=== PATIENT | female | born 1960 | race Caucasian/White ===

== ENCOUNTER 2016-05-03 07:23 | Inpatient (IN) | payer MEDICARE ==
[2016-05-03] MEDS ORDERED: HYDROCODONE/ACETAMINOPHEN 5-325 MG TABLET PO ONE (08:23)
[2016-05-03 08:59] LABS: ABSOLUTE EOSINOPHILS # (AUTO) 0.1 10^3/uL (0.0-0.6); ABSOLUTE MONOCYTES (AUTO) 0.4 10^3/uL (0.1-1.4); ABSOLUTE NEUT (AUTO) 3.2 10^3/uL (1.7-8.2); BASOPHILS % (AUTO) 0.5 % (0-2); EOSINOPHILS % (AUTO) 1.5 % (0-6); HEMOGLOBIN 12.9 g/dL (12.0-15.5); HGB HCT DIFFERENCE -0.3; LYMPHOCYTES % (AUTO) 34.5 % (13-45); MEAN CORPUSCULAR HEMOGLOBIN 24.9 pg (27.0-33.4); MEAN CORPUSCULAR HGB CONC 33.2 g/dL (32.0-36.0); MEAN CORPUSCULAR VOLUME 75 fl (80-97); MONOCYTES % (AUTO) 7.6 % (3-13); RED BLOOD COUNT 5.18 10^6/uL (3.72-5.28); RED CELL DISTRIBUTION WIDTH 15.9 % (11.5-14.0); SEGMENTED NEUTROPHILS % (AUTO) 55.9 % (42-78); WHITE BLOOD COUNT 5.7 10^3/uL (4.0-10.5)
[2016-05-03 09:06] LABS: APPEARANCE,URINE CLEAR; BILIRUBIN,URINE NEGATIVE (NEGATIVE); GLUCOSE, URINE >=500 mg/dL (NEGATIVE); KETONES,URINE TRACE mg/dL (NEGATIVE); LEUKOCYTE ESTERASE,URINE NEGATIVE (NEGATIVE); NITRITE,URINE NEGATIVE (NEGATIVE); PROTEIN,URINE NEGATIVE (NEGATIVE); URINE SPECIFIC GRAVITY 1.025; UROBILINOGEN,URINE NEGATIVE mg/dL (<2.0)
[2016-05-03 09:11] LABS: HYALINE CASTS, URINE RARE /LPF
[2016-05-03] MEDS ORDERED: NORMAL SALINE 1000 ML 1,000 ML IV ONE (09:14)
[2016-05-03 09:22] LABS: ALANINE AMINOTRANSFERASE 59 U/L (9-52); ALKALINE PHOSPHATASE 90 U/L (38-126); ANION GAP 18 (5-19); ASPARTATE AMINO TRANSFERASE 42 U/L (14-36); BILIRUBIN,TOTAL 0.4 mg/dL (0.2-1.3); BLOOD UREA NITROGEN 15 mg/dL (7-20); CALCIUM 9.4 mg/dL (8.4-10.2); CARBON DIOXIDE 20 mmol/L (22-30); CHLORIDE 101 mmol/L (98-107); CREATININE RESULT 0.84 mg/dL (0.52-1.25); LIPASE 179.6 U/L (23-300); POTASSIUM 4.5 mmol/L (3.6-5.0); SODIUM 139.3 mmol/L (137-145); TOTAL PROTEIN 6.9 g/dL (6.3-8.2)
[2016-05-03 09:32] LABS: GLUCOSE 412 mg/dL (75-110)
[2016-05-03] MEDS ORDERED: MORPHINE SULFATE 10 MG/ML INJ IV ONE (10:37)
[2016-05-03] MEDS ORDERED: ONDANSETRON HCL INJ/PF 4 MG/2 ML SDV IV ONE (10:37)
[2016-05-03 11:59] LABS: PROTHROMBIN TIME 12.2 SEC (11.4-15.4)
[2016-05-03 12:00] LABS: PARTIAL THROMBOPLASTIN TIME 26.2 SEC (23.5-35.8)
--- NOTE | 2016-05-03 12:03 | ER Document Report ---
ED General - General Chief Complaint: Back Pain Stated Complaint: BACK PAIN Information source: Patient Notes: 55-year-old female presents to the emergency department complaining of mid back pain. Patient reports gradual onset and progressive bilateral R>L mid back pain. States pain radiates to bilateral flank area and is worse when laying down. States pain does not worsen with movement of back/trunk or ambulation and denies midline/vertebral tenderness. Denies recent injury, trauma or fall, fever, extremity weakness/numbness/tingling, saddle numbness, nausea or vomiting , chest pain, shortness of breath. TRAVEL OUTSIDE OF THE [place] IN LAST 30 DAYS: No - HPI Onset: Last week Onset/Duration: Gradual, Persistent Quality of pain: Achy, Sharp, Throbbing Severity: Moderate Pain Level: 4 Exacerbated by: Supine, Coughing Similar symptoms previously: No Recently seen / treated by doctor: No - Related Data Allergies/Adverse Reactions: clarithromycin [From Biaxin] Allergy (Verified 05/03/16 07:55) haloperidol [From Haldol] Allergy (Verified 05/03/16 07:55) Sulfa (Sulfonamide Antibiotics) Allergy (Verified 05/03/16 07:55) Home Medications: Current Home Medications Glipizide [Glocotrol 10 Mg Tablet] 10 mg PO DAILY 05/03/16 [History] Multivitamin [Tab-A-Bro] 1 each PO DAILY 05/03/16 [History] Past Medical History - General Information source: Patient Last Menstrual Period: NA - Social History Smoking Status: Current Every Day Smoker Cigarette use (# per day): Yes - 10/day Frequency of alcohol use: None Drug Abuse: None Lives with: Family Family History: CAD - Past Medical History Cardiac Medical History: Reports: Hx Hypercholesterolemia, Hx Hypertension Endocrine Medical History: Reports: Hx Diabetes Mellitus Type 2 GI Medical History: Reports: Hx Gastroesophageal Reflux Disease Psychiatric Medical History: Reports: Hx Bipolar Disorder, Hx Depression, Hx Schizoaffective Disorder Past Surgical History: Reports: Hx Appendectomy, Hx Section, Hx Tonsillectomy - Immunizations Hx Diphtheria, Pertussis, Tetanus Vaccination: Yes Review of Systems - Review of Systems Constitutional: No symptoms reported EENT: No symptoms reported Cardiovascular: No symptoms reported Respiratory: No symptoms reported Gastrointestinal: See HPI Genitourinary: No symptoms reported Female Genitourinary: No symptoms reported Musculoskeletal: See HPI Skin: No symptoms reported Hematologic/Lymphatic: No symptoms reported Neurological/Psychological: No symptoms reported -: Yes All other systems reviewed and negative Physical Exam - Vital signs Vitals: Temp Pulse Resp BP Pulse Ox 97.8 F 103 H 16 149/74 H 96 05/03/16 07:29 05/03/16 07:29 05/03/16 07:29 05/03/16 07:29 05/03/16 07:29 Interpretation: Normal - General General appearance: Appears well, Alert In distress: None - HEENT Head: Normocephalic, Atraumatic Eyes: Normal Pupils: PERRL - Respiratory Respiratory status: No respiratory distress Chest status: Nontender Breath sounds: Normal - CTAB Chest palpation: Normal - Cardiovascular Rhythm: Regular Heart sounds: Normal auscultation Murmur: No Pulses: Normal: Radial, Posterior tibial, Dorsalis pedis Normal capillary refill: Yes - Abdominal Inspection: Normal Distension: No distension Bowel sounds: Normal Tenderness: Nontender. No: Tender, McBurney's point, Bourgeois's sign, Guarding, Rebound, Other Organomegaly: No organomegaly - Back Back: Nontender - No tenderness to palpation to the midline vertebral area or paraspinal musculature., CVA tenderness - bilateral R>L with percussion. No: Deformity/step-off, Vertebra tenderness, Scars, Scoliosis, Wounds, Other - Extremities General upper extremity: Normal inspection, Nontender, Normal color, Normal ROM , Normal temperature General lower extremity: Normal inspection, Nontender, Normal color, Normal ROM , Normal temperature, Normal weight bearing. No: Shashi's sign - Neurological Neuro grossly intact: Yes Cognition: Normal Orientation: AAOx4 [place] Coma Scale Eye Opening: Spontaneous [place] Coma Scale Verbal: Oriented [place] Coma Scale Motor: Obeys Commands [place] Coma Scale Total: 15 Speech: Normal Motor strength normal: LUE, RUE, LLE, RLE Sensory: Normal - Psychological Associated symptoms: Normal affect, Normal mood - Skin Skin Temperature: Warm Skin Moisture: Dry Skin Color: Normal Course - Re-evaluation Re-evalutation: 05/03/16 09:05 Patient hemodynamically stable, in no distress. Area of concern on CT scan nearly liver per radiologist who recommends obtaining a CT of abdomen with IV contrast to further evaluate for possible thrombus. 05/03/16 11:45 Patient remained hemodynamically stable, in no distress, afebrile. Left portal vein thrombosis on CT scan. Patient presentation and findings were discussed with hospitalist Dr. Mahoney who agrees to evaluate patient in the emergency department, assumed care, and admit to inpatient unit. Findings and plan discussed with patient and who verbalized understanding and agree with plan. - Vital Signs Vital signs: Temp Pulse Resp BP Pulse Ox 98.3 F 88 16 135/77 H 97 05/03/16 09:41 05/03/16 09:41 05/03/16 09:41 05/03/16 09:41 05/03/16 09:41 - Laboratory Result Diagrams: 05/03/16 08:35 05/03/16 08:35 Laboratory results interpreted by me: 05/03/16 05/03/16 05/03/16 08:25 08:35 08:35 MCV 75 L MCH 24.9 L RDW 15.9 H Carbon Dioxide 20 L Glucose 412 H* AST 42 H ALT 59 H Urine Glucose (UA) >=500 H Urine Ketones TRACE H Urine Blood SMALL H - Diagnostic Test Radiology reviewed: Image reviewed, Reports reviewed Discharge - Discharge Clinical Impression: Portal vein thrombosis Condition: Stable Disposition: ADMITTED INPATIENT Admitting Provider: Hospitalist Unit Admitted: Medical Floor
[2016-05-03] MEDS ORDERED: DEXTROSE 40% GEL 15 GM TUBE PO PRN ×2 (12:39)
[2016-05-03] MEDS ORDERED: GLUCAGON,HUMAN RECOMB 1 MG INJ IM PRN (12:39)
[2016-05-03] MEDS ORDERED: DEXTROSE 50%-WATER 25 GM/50 ML DISP.SYRIN IV PRN ×2 (12:39)
--- NOTE | 2016-05-03 12:51 | PDOC H&P ---
History of Present Illness Admission Date/PCP: 05/03/2016 Dr Guillory Patient complains of: severe right flanck pain History of Present Illness: BOBO ANAYA is a 55 year old female Who presented to the ED with severe right flank pain The pain started about a week ago this constant about 3-5/10 Patient has no dysuria nausea vomiting diarrhea Patient has no shortness of breath or chest pain Upon evaluation in the ED patient was diagnosed of portal vein thrombosis, and admitted for further workup and anticoagulation a GI consult was obtained Past Medical History Cardiac Medical History: Reports: Hyperlipidema, Hypertension Endocrine Medical History: Reports: Diabetes Mellitus Type 2 GI Medical History: Reports: Gastroesophageal Reflux Disease Psychiatric Medical History: Reports: Bipolar Disorder, Depression, Schizoaffective Disorder Past Surgical History Past Surgical History: Reports: Appendectomy, Section, Tonsillectomy Social History Smoking Status: Current Every Day Smoker Frequency of Alcohol Use: Rare Hx Recreational Drug Use: No Drugs: None - Advance Directive Resuscitation Status: Full Code Surrogate healthcare decision maker:: Karely Family History Family History: CAD Parental Family History Reviewed: Yes - mother of a blood clot at age 75; father has coronary artery disease Children Family History Reviewed: Yes Sibling(s) Family History Reviewed.: Yes Medication/Allergy Home Medications: Hydroxyzine Pamoate [Vistaril 25 mg Capsule] 25 mg PO ASDIR PRN 03/12/16 Insulin Detemir [Levemir Flextouch] 75 unit SQ HSP 03/12/16 Levothyroxine Sodium [Synthroid 0.112 mg Tablet] 112 mcg PO DAILY 03/12/16 Losartan Potassium 100 mg PO DAILY 03/12/16 Metformin HCl [Glucophage] 1,000 mg PO BID 03/12/16 Omeprazole 40 mg PO DAILY 03/12/16 Simvastatin 40 mg PO QHS 03/12/16 Tizanidine HCl 4 mg PO TID 03/12/16 Trazodone HCl 150 mg PO QHS 03/12/16 Venlafaxine HCl [Venlafaxine HCl ER] 225 mg PO DAILY 03/12/16 Ziprasidone HCl [Geodon] 80 mg PO BID 03/12/16 Glipizide [Glocotrol 10 Mg Tablet] 10 mg PO DAILY 05/03/16 Multivitamin [Tab-A-Bro] 1 each PO DAILY 05/03/16 Allergies/Adverse Reactions: clarithromycin [From Biaxin] Allergy (Verified 05/03/16 07:55) haloperidol [From Haldol] Allergy (Verified 05/03/16 07:55) Sulfa (Sulfonamide Antibiotics) Allergy (Verified 05/03/16 07:55) Review of Systems Constitutional: ABSENT: chills, fever(s), headache(s), weight gain, weight loss Eyes: ABSENT: visual disturbances Ears: ABSENT: hearing changes Cardiovascular: ABSENT: chest pain, dyspnea on exertion, edema, orthropnea, palpitations Respiratory: ABSENT: cough, hemoptysis Gastrointestinal: PRESENT: as per HPI, dysphagia - Dysphagia for solids for weeks Right flank pain for the past week, other - Right flank pain. ABSENT: abdominal pain, constipation, diarrhea, hematemesis, hematochezia, nausea, vomiting Genitourinary: ABSENT: dysuria, hematuria Musculoskeletal: ABSENT: joint swelling Integumentary: ABSENT: rash, wounds Neurological: ABSENT: abnormal gait, abnormal speech, confusion, dizziness, focal weakness, syncope Psychiatric: ABSENT: anxiety, depression, homidical ideation, suicidal ideation Endocrine: ABSENT: cold intolerance, heat intolerance, polydipsia, polyuria Hematologic/Lymphatic: ABSENT: easy bleeding, easy bruising Physical Exam Vital Signs: Temp Pulse Resp BP Pulse Ox 98.3 F 88 16 135/77 H 97 05/03/16 09:41 05/03/16 09:41 05/03/16 09:41 05/03/16 09:41 05/03/16 09:41 Intake & Output 05/02/16 05/03/16 05/04/16 00:59 00:59 00:59 Weight 102.1 kg General appearance: PRESENT: no acute distress, well-developed, well-nourished Head exam: PRESENT: atraumatic, normocephalic Eye exam: PRESENT: conjunctiva pink, EOMI, PERRLA. ABSENT: scleral icterus Ear exam: PRESENT: normal external ear exam Mouth exam: PRESENT: moist, tongue midline Neck exam: ABSENT: carotid bruit, JVD, lymphadenopathy, thyromegaly Respiratory exam: PRESENT: clear to auscultation [place]. ABSENT: rales, rhonchi, wheezes Cardiovascular exam: PRESENT: RRR. ABSENT: diastolic murmur, rubs, systolic murmur Pulses: PRESENT: normal dorsalis pedis pul Vascular exam: PRESENT: normal capillary refill GI/Abdominal exam: PRESENT: normal bowel sounds, soft, other - Severe right CVA tenderness. ABSENT: distended, guarding, mass, organolmegaly, rebound, tenderness Rectal exam: PRESENT: deferred Extremities exam: PRESENT: full ROM. ABSENT: calf tenderness, clubbing, pedal edema Neurological exam: PRESENT: alert, awake, oriented to person, oriented to place , oriented to time, oriented to situation, CN II-XII grossly intact. ABSENT: motor sensory deficit Psychiatric exam: PRESENT: appropriate affect, normal mood. ABSENT: homicidal ideation, suicidal ideation Skin exam: PRESENT: dry, intact, warm. ABSENT: cyanosis, rash Results Laboratory Results: 05/03/16 08:35 05/03/16 08:35 05/03/16 05/03/16 05/03/16 08:25 08:35 08:35 WBC 5.7 RBC 5.18 Hgb 12.9 Hct 39.0 MCV 75 L MCH 24.9 L MCHC 33.2 RDW 15.9 H Plt Count 223 Seg Neutrophils % 55.9 Lymphocytes % 34.5 Monocytes % 7.6 Eosinophils % 1.5 Basophils % 0.5 Absolute Neutrophils 3.2 Absolute Lymphocytes 2.0 Absolute Monocytes 0.4 Absolute Eosinophils 0.1 Absolute Basophils 0.0 Sodium 139.3 Potassium 4.5 Chloride 101 Carbon Dioxide 20 L Anion Gap 18 BUN 15 Creatinine 0.84 Est GFR ( Amer) > 60 Est GFR (Non-Af Amer) > 60 Glucose 412 H* Calcium 9.4 Total Bilirubin 0.4 AST 42 H ALT 59 H Alkaline Phosphatase 90 Total Protein 6.9 Albumin 4.0 Lipase 179.6 Urine Color YELLOW Urine Appearance CLEAR Urine pH 5.0 Ur Specific [place] 1.025 Urine Protein NEGATIVE Urine Glucose (UA) >=500 H Urine Ketones TRACE H Urine Blood SMALL H Urine Nitrite NEGATIVE Ur Leukocyte Esterase NEGATIVE Ur Squamous Epith Cells FEW Impressions: Limited or Localized CT 05/03/16 08:24 IMPRESSION: Diffusely abnormal liver as above. 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 Assessment & Plan - Diagnosis (1) Fatty liver Is this a current diagnosis for this admission?: YesPlan: Slightly abnormal LFTs (2) Uncontrolled diabetes mellitus Qualifiers: Diabetes mellitus type: type 2 Diabetes mellitus complication status: without complication Diabetes mellitus assisted insulin use: without district traffic chief use Qualified Code(s): E11.65 - Type 2 diabetes mellitus with hyperglycemia Is this a current diagnosis for this admission?: YesPlan: We'll hold insulin at this point as patient is kept nothing by mouth We will obtain in a.m. hemoglobin A1c and lipid profile (3) Portal vein thrombosis Is this a current diagnosis for this admission?: YesPlan: Dr. Conklin was consulted We will perform endoscopy this evening If patient does not have esophageal varices we will initiate anticoagulation with Lovenox and Coumadin (4) Depression Qualifiers: Depression Type: unspecified Qualified Code(s): F32.9 - Major depressive disorder, single episode, unspecified Is this a current diagnosis for this admission?: YesPlan: Continue prior medications (5) Tobacco abuse Is this a current diagnosis for this admission?: YesPlan: Nicotine patch will be applied (6) Dysphagia Is this a current diagnosis for this admission?: YesPlan: Dysphagia for solids Endoscopy will be performed this evening - Time Time Spent: 50 to 70 Minutes - Patient was admitted as an inpatient
[2016-05-03] MEDS: INSULIN LISPRO 100 UNIT/ML 3 ML VIAL SUBCUT PRN ×2 (14:47→21:31)
[2016-05-03] MEDS ORDERED: NALOXONE HCL INJ/PF 0.4 MG/1 ML SDV ONE (15:44)
[2016-05-03] MEDS ORDERED: PROMETHAZINE HCL INJ 25 MG/1 ML VIAL ONE (15:44)
[2016-05-03] MEDS ORDERED: MIDAZOLAM 2 MG/2 ML INJ ONE ×2 (15:44)
[2016-05-03] MEDS ORDERED: FLUMAZENIL INJ 0.5 MG/5 ML VIAL IV ONE (15:45)
[2016-05-03] MEDS ORDERED: EPINEPHRINE INJ 1 MG/10 ML DISP.SYRIN ONE (15:45)
[2016-05-03] MEDS ORDERED: FENTANYL CITRATE INJ/PF 100 MCG/2 ML AMPUL ONE (15:45)
[2016-05-03] MEDS ORDERED: GLUCAGON,HUMAN RECOMB 1 MG INJ ONE (15:45)
--- NOTE | 2016-05-03 16:49 | PDOC CONSULTATION ---
Consultation Consult Date: 05/03/16 History of Present Illness Admission Date/PCP: 05/03/16 13:15 History of Present Illness: This is a 55-year-old patient who was admitted today with right-sided abdominal pain and left portal vein thrombosis on CAT scan. The pain has been constant without nausea or vomiting. There is no diarrhea. Her CAT scan showed thrombosis of the left portal vein with cavernous formation. She is about to be started on anticoagulation. She also complains of dysphagia that has been going on for many years but more frequent in the last one year. Dysphagia is for solid foods and pills. She denies heartburn and has been taking omeprazole daily. Her bowels move regularly. She has not had an EGD or colonoscopy in over 20 years. Past Medical History Cardiac Medical History: Reports: Hyperlipidema, Hypertension Endocrine Medical History: Reports: Diabetes Mellitus Type 2 GI Medical History: Reports: Gastroesophageal Reflux Disease Psychiatric Medical History: Reports: Bipolar Disorder, Depression, Schizoaffective Disorder Past Surgical History Past Surgical History: Reports: Appendectomy, Section, Tonsillectomy Denies: Hysterectomy Social History Lives with: Family Smoking Status: Current Every Day Smoker Cigarettes Packs Per Day: 0.5 Frequency of Alcohol Use: Occasional Hx Recreational Drug Use: No Drugs: None Hx Prescription Drug Abuse: No - Advance Directive Resuscitation Status: Full Code Family History Family History: CAD Parental Family History Reviewed: No Children Family History Reviewed: NA Sibling(s) Family History Reviewed.: NA Medication/Allergy Home Medications: Hydroxyzine Pamoate [Vistaril 25 mg Capsule] 25 mg PO ASDIR PRN 03/12/16 Insulin Detemir [Levemir Flextouch] 75 unit SQ HSP 03/12/16 Levothyroxine Sodium [Synthroid 0.112 mg Tablet] 112 mcg PO DAILY 03/12/16 Losartan Potassium 100 mg PO DAILY 03/12/16 Metformin HCl [Glucophage] 1,000 mg PO BID 03/12/16 Omeprazole 40 mg PO DAILY 03/12/16 Simvastatin 40 mg PO QHS 03/12/16 Tizanidine HCl 4 mg PO TID 03/12/16 Trazodone HCl 150 mg PO QHS 03/12/16 Venlafaxine HCl [Venlafaxine HCl ER] 225 mg PO DAILY 03/12/16 Ziprasidone HCl [Geodon] 80 mg PO BID 03/12/16 Glipizide [Glocotrol 10 Mg Tablet] 10 mg PO DAILY 05/03/16 Multivitamin [Tab-A-Bro] 1 each PO DAILY 05/03/16 Allergies/Adverse Reactions: clarithromycin [From Biaxin] Allergy (Verified 05/03/16 07:55) haloperidol [From Haldol] Allergy (Verified 05/03/16 07:55) Sulfa (Sulfonamide Antibiotics) Allergy (Verified 05/03/16 07:55) Physical Exam Vital Signs: Temp Pulse Resp BP Pulse Ox 97.6 F 75 12 117/44 L 97 05/03/16 15:37 05/03/16 16:40 05/03/16 16:40 05/03/16 16:40 05/03/16 16:40 Intake & Output 05/02/16 05/03/16 05/04/16 06:59 06:59 06:59 Intake Total 300 Balance 300 Exam: General: Patient is alert and looks well. She is obese HEENT: There is no pallor or jaundice. PERRLA. Oropharynx normal Respiratory: No chest deformity. No respiratory distress. Chest wall palpitation was unremarkable. Breath sounds were normal Cardiovascular: Heart sounds 1 and 2 normal with no murmurs. Abdominal: Not distended. Soft and nontender. Liver and spleen not palpable. No ascites demonstrated. Bowel sounds active. Rectal examination was deferred. Extremities: No edema Neurological: Alert and oriented x4. Grossly nonfocal. Normal speech Skin: No significant rash Psychological: Normal affect Results Impressions: Limited or Localized CT 05/03/16 08:24 IMPRESSION: Diffusely abnormal liver as above. 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 Assessment & Plan - Diagnosis (1) Dysphagia Qualifiers: Dysphagia type: pharyngoesophageal phase Qualified Code(s): R13.14 - Dysphagia, pharyngoesophageal phase Is this a current diagnosis for this admission?: YesPlan: The etiology for her dysphagia is unclear. She will undergo an EGD and if this is unremarkable a manometry may be needed. (2) Portal vein thrombosis Is this a current diagnosis for this admission?: YesPlan: The etiology for her thrombosis is unclear. She will be started on anticoagulants shortly. We will need to rule out neoplasm (3) Colon cancer screening Plan: She will need a colonoscopy as outpatient (4) Fatty liver Is this a current diagnosis for this admission?: Yes
--- NOTE | 2016-05-03 16:50 | Operative Report ---
Operative Report DATE OF SURGERY: 05/03/16 Operative Report: Pre-op diagnosis: Dysphagia Post-op diagnosis: Antral gastritis Surgery: Esophagogastroduodenoscopy with biopsy Medications: Versed 3 mg Fentanyl 100 mcg IV push Tissue removed: Antral biopsy for pathology Procedure: After informed consent obtained from patient, the throat was sprayed with Hurricane and conscious sedation was achieved. The upper endoscope was inserted into the esophagus under direct vision and advanced into the stomach. The duodenum was entered and examined to the second part. Endoscope was then slowly pulled out of the patient as the mucosa was examined into details. Patient tolerated procedure well. Findings Esophagus: Normal Z-line at: 40 cm Antrum: Moderate erythema area biopsy was taken Body: Normal Fundus: Normal Duodenum first part: Normal Duodenum second part: Normal Plan: Await pathology. Continue Prevacid. Schedule esophageal manometry as outpatient OPERATION: .
[2016-05-03] MEDS ORDERED: (PENDING PHARMACY ID) (Ziprasidone Hcl [Geodon] 80 MG) PO SCH (18:00)
[2016-05-03] MEDS: ZIPRASIDONE HCL 40 MG CAPSULE PO SCH (18:41)
[2016-05-03] MEDS: SIMVASTATIN 40 MG TABLET PO SCH (21:29)
[2016-05-03] MEDS: TRAZODONE HCL 50 MG TABLET PO SCH (21:31)
[2016-05-04 04:44] LABS: ABSOLUTE EOSINOPHILS # (AUTO) 0.1 10^3/uL (0.0-0.6); ABSOLUTE LYMPHOCYTES (AUTO) 2.6 10^3/uL (0.5-4.7); ABSOLUTE MONOCYTES (AUTO) 0.5 10^3/uL (0.1-1.4); ABSOLUTE NEUT (AUTO) 3.6 10^3/uL (1.7-8.2); BASOPHILS % (AUTO) 0.6 % (0-2); EOSINOPHILS % (AUTO) 1.8 % (0-6); HEMOGLOBIN 11.4 g/dL (12.0-15.5); HGB HCT DIFFERENCE 0.2; LYMPHOCYTES % (AUTO) 37.5 % (13-45); MEAN CORPUSCULAR HEMOGLOBIN 24.9 pg (27.0-33.4); MEAN CORPUSCULAR HGB CONC 33.7 g/dL (32.0-36.0); MEAN CORPUSCULAR VOLUME 74 fl (80-97); MONOCYTES % (AUTO) 7.6 % (3-13); RED CELL DISTRIBUTION WIDTH 15.9 % (11.5-14.0); SEGMENTED NEUTROPHILS % (AUTO) 52.5 % (42-78); WHITE BLOOD COUNT 6.9 10^3/uL (4.0-10.5)
[2016-05-04 04:51] LABS: PROTHROMBIN TIME 12.6 SEC (11.4-15.4)
[2016-05-04 04:57] LABS: ALANINE AMINOTRANSFERASE 47 U/L (9-52); ALBUMIN 3.3 g/dL (3.5-5.0); ALKALINE PHOSPHATASE 69 U/L (38-126); ANION GAP 10 (5-19); ASPARTATE AMINO TRANSFERASE 27 U/L (14-36); BILIRUBIN,TOTAL 0.4 mg/dL (0.2-1.3); BLOOD UREA NITROGEN 15 mg/dL (7-20); CALCIUM 9.2 mg/dL (8.4-10.2); CARBON DIOXIDE 23 mmol/L (22-30); CHLORIDE 104 mmol/L (98-107); CHOLESTEROL 144.34 mg/dL (0-200); CREATININE RESULT 0.79 mg/dL (0.52-1.25); Direct HDL 36 mg/dL (>40); GLUCOSE 261 mg/dL (75-110); POTASSIUM 4.5 mmol/L (3.6-5.0); SODIUM 137.1 mmol/L (137-145); TOTAL PROTEIN 5.6 g/dL (6.3-8.2); TRIGLYCERIDES 267 mg/dL (<150)
[2016-05-04] MEDS: LANSOPRAZOLE 30 MG TAB.RAP.DR PO SCH (05:06)
[2016-05-04] MEDS: LEVOTHYROXINE SODIUM 0.112 MG TABLET PO SCH (05:07)
[2016-05-04 05:08] LABS: DIRECT LDL 85 mg/dL (<100)
[2016-05-04 05:12] LABS: VLDL CHOLESTEROL 53.4 mg/dL (10-31)
[2016-05-04] MEDS: ENOXAPARIN SODIUM INJ 100 MG/1 ML DISP.SYRIN SUBCUT SCH ×2 (06:21→17:35)
[2016-05-04 07:50] LABS: APPEARANCE,URINE CLEAR; BILIRUBIN,URINE NEGATIVE (NEGATIVE); GLUCOSE, URINE 150 mg/dL (NEGATIVE); KETONES,URINE NEGATIVE (NEGATIVE); LEUKOCYTE ESTERASE,URINE NEGATIVE (NEGATIVE); NITRITE,URINE NEGATIVE (NEGATIVE); PROTEIN,URINE NEGATIVE (NEGATIVE); URINE SPECIFIC GRAVITY 1.015; UROBILINOGEN,URINE NEGATIVE mg/dL (<2.0)
[2016-05-04] MEDS: INSULIN LISPRO 100 UNIT/ML 3 ML VIAL SUBCUT PRN ×4 (07:59→21:39)
[2016-05-04] MEDS: ZIPRASIDONE HCL 40 MG CAPSULE PO SCH ×2 (07:59→16:35)
[2016-05-04] MEDS: VENLAFAXINE HCL 75 MG CAP.SR.24H PO SCH (09:26)
[2016-05-04] MEDS: MULTIVITAMIN TABLET PO SCH (09:26)
[2016-05-04] MEDS ORDERED: (PENDING PHARMACY ID) (Losartan Potassium [Losartan Potassium] 100 MG) PO SCH (10:00)
[2016-05-04] MEDS ORDERED: (PENDING PHARMACY ID) (Venlafaxine Hcl [Venlafaxine Hcl Er] 225 MG) PO SCH (10:00)
[2016-05-04] MEDS ORDERED: INSULIN DETEMIR 100 UNIT/ML 3 ML PEN SUBCUT SCH (10:00)
--- NOTE | 2016-05-04 10:10 | PDOC DISCHARGE SUMMARY ---
General - Admit/Disc Date/PCP Admission Date/Primary Care Provider: 05/03/16 13:15 Discharge Date: 05/04/16 - Discharge Diagnosis (1) Fatty liver Is this a current diagnosis for this admission?: Yes (2) Uncontrolled diabetes mellitus Is this a current diagnosis for this admission?: YesSummary: Patient had discontinued her Levemir as she could not afford it She was given a prescription and we will resume Levemir 74 units subcutaneous daily at bedtime Hemoglobin A1c was 11.4 (3) Portal vein thrombosis Is this a current diagnosis for this admission?: YesSummary: Isolated portal vein thrombosis family history of blood clots. Patient indeed may have hypercoagulability syndrome There is no evidence of chronic liver disease Endoscopy was performed and was normal; no esophageal varices Patient was treated with Lovenox at 100 mg subcutaneous every 12 Hypercoagulability syndrome lab test was sent as well as hepatitis screen Patient will be followed by Dr. Mae Was discharged on Lovenox subcutaneous (4) Depression Is this a current diagnosis for this admission?: Yes (5) Tobacco abuse Is this a current diagnosis for this admission?: Yes (6) Dysphagia Is this a current diagnosis for this admission?: YesSummary: No abnormalities on endoscopy Patient to follow-up with Dr. Conklin for manometry studies if dysphagia persists Prevacid 30 mg daily (7) Hyperlipidemia Is this a current diagnosis for this admission?: YesSummary: Continue Lipitor Initiated omega-3 fatty acid at discharge Encourage low fat diet - Additional Information Resuscitation Status: Full Code Discharge Diet: Cardiac, Diabetic Discharge Activity: Activity As Tolerated Home Medications: Levothyroxine Sodium [Synthroid 0.112 mg Tablet] 112 mcg PO DAILY 03/12/16 Losartan Potassium 100 mg PO DAILY 03/12/16 Metformin HCl [Glucophage] 1,000 mg PO BID 03/12/16 Simvastatin 40 mg PO QHS 03/12/16 Tizanidine HCl 4 mg PO TID 03/12/16 Trazodone HCl 150 mg PO QHS 03/12/16 Venlafaxine HCl [Venlafaxine HCl ER] 225 mg PO DAILY 03/12/16 Ziprasidone HCl [Geodon] 80 mg PO BID 03/12/16 Glipizide [Glucotrol 10 mg Tablet] 10 mg PO DAILY 05/03/16 Multivitamin [Tab-A-Bro] 1 each PO DAILY 05/03/16 Enoxaparin Sodium [Lovenox Inj 100 mg/1 ml Disp.syrin] 100 mg SUBCUT Q12A #14 disp.syrin 05/04/16 Insulin Detemir [Levemir Flextouch] 75 unit SQ QHS #1 pe 05/04/16 Lansoprazole [Prevacid 30 mg Odt Tablet] 30 mg PO Q6AM #30 tab 05/04/16 [place]-3 Acid Ethyl Esters [Lovaza 1 gm Capsule] 1 gm PO BID #60 capsule History of Present Illness Patient complains of: rt flanck pain History of Present Illness: BOBO ANAYA is a 55 year old female Who presented to the ED with severe right flank pain The pain started about a week ago this constant about 3-5/10 Patient has no dysuria nausea vomiting diarrhea Patient has no shortness of breath or chest pain Upon evaluation in the ED patient was diagnosed of portal vein thrombosis, and admitted for further workup and anticoagulation a GI consult was obtained Hospital Course Hospital Course: Patient was admitted overnight; she underwent endoscopy which was entirely normal Lovenox subcutaneous was initiated; 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 Mae in the office Physical Exam Vital Signs: Temp Pulse Resp BP Pulse Ox 97.5 F 77 16 132/59 H 98 05/04/16 08:41 05/04/16 08:41 05/04/16 08:41 05/04/16 08:41 05/04/16 08:41 Intake & Output 05/03/16 05/04/16 05/05/16 00:59 00:59 00:59 Intake Total 300 1005 Output Total 300 Balance 300 705 Weight 95.7 kg 102 kg General appearance: PRESENT: no acute distress, well-developed, well-nourished Head exam: PRESENT: atraumatic, normocephalic Eye exam: PRESENT: conjunctiva pink, EOMI, PERRLA. ABSENT: scleral icterus Ear exam: PRESENT: normal external ear exam Mouth exam: PRESENT: moist, tongue midline Neck exam: ABSENT: carotid bruit, JVD, lymphadenopathy, thyromegaly Respiratory exam: PRESENT: clear to auscultation darwin. ABSENT: rales, rhonchi, wheezes Cardiovascular exam: PRESENT: RRR. ABSENT: diastolic murmur, rubs, systolic murmur Pulses: PRESENT: normal dorsalis pedis pul Vascular exam: PRESENT: normal capillary refill GI/Abdominal exam: PRESENT: normal bowel sounds, soft. ABSENT: distended, guarding, mass, organolmegaly, rebound, tenderness Rectal exam: PRESENT: deferred Extremities exam: PRESENT: full ROM. ABSENT: calf tenderness, clubbing, pedal edema Neurological exam: PRESENT: alert, awake, oriented to person, oriented to place , oriented to time, oriented to situation, CN II-XII grossly intact. ABSENT: motor sensory deficit Psychiatric exam: PRESENT: appropriate affect, normal mood. ABSENT: homicidal ideation, suicidal ideation Skin exam: PRESENT: dry, intact, warm. ABSENT: cyanosis, rash Results Laboratory Results: 05/04/16 04:05 05/04/16 04:05 05/04/16 05/04/16 05/04/16 04:05 04:05 04:05 WBC 6.9 RBC 4.60 Hgb 11.4 L Hct 34.0 L MCV 74 L MCH 24.9 L MCHC 33.7 RDW 15.9 H Plt Count 194 Seg Neutrophils % 52.5 Lymphocytes % 37.5 Monocytes % 7.6 Eosinophils % 1.8 Basophils % 0.6 Absolute Neutrophils 3.6 Absolute Lymphocytes 2.6 Absolute Monocytes 0.5 Absolute Eosinophils 0.1 Absolute Basophils 0.0 Sodium 137.1 Potassium 4.5 Chloride 104 Carbon Dioxide 23 Anion Gap 10 BUN 15 Creatinine 0.79 Est GFR ( Amer) > 60 Est GFR (Non-Af Amer) > 60 Glucose 261 H Calcium 9.2 Total Bilirubin 0.4 AST 27 ALT 47 Alkaline Phosphatase 69 Total Protein 5.6 L Albumin 3.3 L Triglycerides 267 H Cholesterol 144.34 LDL Cholesterol Direct 85 VLDL Cholesterol 53.4 H HDL Cholesterol 36 L TSH 2.47 Urine Color Urine Appearance Urine pH Ur Specific [place] Urine Protein Urine Glucose (UA) Urine Ketones Urine Blood Urine Nitrite Ur Leukocyte Esterase Urine WBC (Auto) Urine RBC (Auto) 05/04/16 07:15 WBC RBC Hgb Hct MCV MCH MCHC RDW Plt Count Seg Neutrophils % Lymphocytes % Monocytes % Eosinophils % Basophils % Absolute Neutrophils Absolute Lymphocytes Absolute Monocytes Absolute Eosinophils Absolute Basophils Sodium Potassium Chloride Carbon Dioxide Anion Gap BUN Creatinine Est GFR ( Amer) Est GFR (Non-Af Amer) Glucose Calcium Total Bilirubin AST ALT Alkaline Phosphatase Total Protein Albumin Triglycerides Cholesterol LDL Cholesterol Direct VLDL Cholesterol HDL Cholesterol TSH Urine Color YELLOW Urine Appearance CLEAR Urine pH 5.0 Ur Specific [place] 1.015 Urine Protein NEGATIVE Urine Glucose (UA) 150 H Urine Ketones NEGATIVE Urine Blood MODERATE H Urine Nitrite NEGATIVE Ur Leukocyte Esterase NEGATIVE Urine WBC (Auto) 1 Urine RBC (Auto) 1 Impressions: Limited or Localized CT 05/03/16 08:24 IMPRESSION: Diffusely abnormal liver as above. 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 Plan Discharge Plan: Discharged home on Lovenox follow-up with hematology Follow-up with GI if dysphagia persists Time Spent: Greater than 30 Minutes
[2016-05-04] MEDS: LOSARTAN POTASSIUM 50 MG TABLET PO SCH (10:51)
[2016-05-04] MEDS: GLIPIZIDE 10 MG TABLET PO SCH (10:52)
[2016-05-04] MEDS: TIZANIDINE HCL 4 MG TABLET PO SCH ×3 (10:52→17:35)
[2016-05-04] MEDS: OMEGA-3 ACID ETHYL ESTERS 1 GM CAPSULE PO SCH ×2 (10:52→17:35)
[2016-05-04] MEDS: TRAZODONE HCL 50 MG TABLET PO SCH (21:39)
[2016-05-04] MEDS: INSULIN DETEMIR 100 UNIT/ML 3 ML PEN SUBCUT SCH (21:39)
[2016-05-04] MEDS: SIMVASTATIN 40 MG TABLET PO SCH (21:39)
[2016-05-04] MEDS ORDERED: WARFARIN SODIUM 5 MG TABLET PO SCH (22:00)
[2016-05-04] MEDS ORDERED: WARFARIN SODIUM 7.5 MG TABLET PO SCH (22:00)
[2016-05-05] MEDS: LANSOPRAZOLE 30 MG TAB.RAP.DR PO SCH (05:51)
[2016-05-05] MEDS: ENOXAPARIN SODIUM INJ 100 MG/1 ML DISP.SYRIN SUBCUT SCH ×2 (05:51→18:09)
[2016-05-05] MEDS: LEVOTHYROXINE SODIUM 0.112 MG TABLET PO SCH (05:51)
[2016-05-05 07:33] LABS: PROTHROMBIN TIME 12.9 SEC (11.4-15.4)
[2016-05-05] MEDS: INSULIN LISPRO 100 UNIT/ML 3 ML VIAL SUBCUT PRN ×4 (08:01→21:32)
[2016-05-05] MEDS: ZIPRASIDONE HCL 40 MG CAPSULE PO SCH ×2 (08:01→16:41)
--- NOTE | 2016-05-05 08:45 | PDOC CONSULTATION ---
Consultation Consult Date: 05/05/16 Attending physician:: PAN HOFFMAN Consult reason:: Newly noted idiopathic portal vein thrombosis History of Present Illness Admission Date/PCP: 05/03/16 13:15 Patient complains of: Portal vein thrombosis History of Present Illness: 55-year-old female with known history of DM 2, hypertension, who came in with right flank pain. It was fairly severe. In the ER, she had CT of the abdomen pelvis done because of this pain, this indicated concern of portal vein thrombosis. There was fatty liver but no CT findings consistent with cirrhosis. Thus far she has had EGD done which did not show any varices. She has had hepatitis panel sent and this is pending. She does not have any significant alcohol history. She is currently on Lovenox. She was started on warfarin. She has had a hypercoagulable workup sent and this is pending. Of note, her mother at age 73 of mesenteric thrombosis and subsequent small bowel infarction, however she did have known history of atrial fibrillation, she was a heavy smoker, she had cardiovascular disease. There are no other family members with thrombosis history, she does have smoking history, but she is a light smoker now, trying to quit. She has never had any thrombosis herself. Past Medical History Cardiac Medical History: Reports: Hyperlipidema, Hypertension Endocrine Medical History: Reports: Diabetes Mellitus Type 2 GI Medical History: Reports: Gastroesophageal Reflux Disease Psychiatric Medical History: Reports: Bipolar Disorder, Depression, Schizoaffective Disorder Past Surgical History Past Surgical History: Reports: Appendectomy, Section, Tonsillectomy Denies: Hysterectomy Social History Lives with: Family Smoking Status: Current Every Day Smoker Cigarettes Packs Per Day: 0.5 Frequency of Alcohol Use: Occasional Hx Recreational Drug Use: No Drugs: None Hx Prescription Drug Abuse: No - Advance Directive Resuscitation Status: Full Code Family History Family History: CAD Parental Family History Reviewed: Yes Children Family History Reviewed: Yes Sibling(s) Family History Reviewed.: Yes Medication/Allergy Home Medications: Levothyroxine Sodium [Synthroid 0.112 mg Tablet] 112 mcg PO DAILY 03/12/16 Losartan Potassium 100 mg PO DAILY 03/12/16 Metformin HCl [Glucophage] 1,000 mg PO BID 03/12/16 Simvastatin 40 mg PO QHS 03/12/16 Tizanidine HCl 4 mg PO TID 11/12/16 Trazodone HCl 150 mg PO QHS 03/12/16 Venlafaxine HCl [Venlafaxine HCl ER] 225 mg PO DAILY 03/12/16 Ziprasidone HCl [Geodon] 80 mg PO BID 03/12/16 Glipizide [Glucotrol 10 mg Tablet] 10 mg PO DAILY 05/03/16 Multivitamin [Tab-A-Bro] 1 each PO DAILY 05/03/16 Enoxaparin Sodium [Lovenox Inj 100 mg/1 ml Disp.syrin] 100 mg SUBCUT Q12A #14 disp.syrin 05/04/16 Insulin Detemir [Levemir Flextouch] 75 unit SQ QHS #1 pe 05/04/16 Lansoprazole [Prevacid 30 mg Odt Tablet] 30 mg PO Q6AM #30 tab.rap.dr 05/04/16 [place]-3 Acid Ethyl Esters [Lovaza 1 gm Capsule] 1 gm PO BID #60 capsule Allergies/Adverse Reactions: clarithromycin [From Biaxin] Allergy (Verified 05/03/16 07:55) haloperidol [From Haldol] Allergy (Verified 05/03/16 07:55) Sulfa (Sulfonamide Antibiotics) Allergy (Verified 05/03/16 07:55) Review of Systems Constitutional: ABSENT: chills, fever(s), headache(s), weight gain, weight loss Eyes: ABSENT: visual disturbances Ears: ABSENT: hearing changes Cardiovascular: ABSENT: chest pain, dyspnea on exertion, edema, orthropnea, palpitations Respiratory: ABSENT: cough, hemoptysis Gastrointestinal: ABSENT: abdominal pain, constipation, diarrhea, hematemesis, hematochezia, nausea, vomiting Genitourinary: ABSENT: dysuria, hematuria Musculoskeletal: ABSENT: joint swelling Integumentary: ABSENT: rash, wounds Neurological: ABSENT: abnormal gait, abnormal speech, confusion, dizziness, focal weakness, syncope Psychiatric: ABSENT: anxiety, depression, homidical ideation, suicidal ideation Endocrine: ABSENT: cold intolerance, heat intolerance, polydipsia, polyuria Hematologic/Lymphatic: ABSENT: easy bleeding, easy bruising Physical Exam Vital Signs: Temp Pulse Resp BP Pulse Ox 98.4 F 68 16 129/68 H 98 05/05/16 00:38 05/05/16 00:38 05/05/16 00:38 05/05/16 00:38 05/05/16 00:38 Intake & Output 05/04/16 05/05/16 05/06/16 06:59 06:59 06:59 Intake Total 1305 2038 Output Total 300 2600 Balance 1005 -562 Weight 102 kg 102 kg General appearance: PRESENT: no acute distress, well-developed, well-nourished Head exam: PRESENT: atraumatic, normocephalic Eye exam: PRESENT: conjunctiva pink, EOMI, PERRLA. ABSENT: scleral icterus Ear exam: PRESENT: normal external ear exam Mouth exam: PRESENT: moist, tongue midline Neck exam: ABSENT: carotid bruit, JVD, lymphadenopathy, thyromegaly Respiratory exam: PRESENT: clear to auscultation [place]. ABSENT: rales, rhonchi, wheezes Cardiovascular exam: PRESENT: RRR. ABSENT: diastolic murmur, rubs, systolic murmur Pulses: PRESENT: normal dorsalis pedis pul Vascular exam: PRESENT: normal capillary refill GI/Abdominal exam: PRESENT: normal bowel sounds, soft. ABSENT: distended, guarding, mass, organolmegaly, rebound, tenderness Rectal exam: PRESENT: deferred Extremities exam: PRESENT: full ROM. ABSENT: calf tenderness, clubbing, pedal edema Neurological exam: PRESENT: alert, awake, oriented to person, oriented to place , oriented to time, oriented to situation, CN II-XII grossly intact. ABSENT: motor sensory deficit Psychiatric exam: PRESENT: appropriate affect, normal mood. ABSENT: homicidal ideation, suicidal ideation Skin exam: PRESENT: dry, intact, warm. ABSENT: cyanosis, rash Results Laboratory Results: 05/04/16 04:05 05/04/16 04:05 Impressions: Limited or Localized CT 05/03/16 08:24 IMPRESSION: Diffusely abnormal liver as above. 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 Status: Image reviewed by me Assessment & Plan - Diagnosis (1) Portal vein thrombosis Is this a current diagnosis for this admission?: YesPlan: Usually portal vein thrombosis is seen in the setting of cirrhosis, or hepatitis. In her case, it appears to be idiopathic. At present we need to continue on Lovenox with transition to warfarin. She unfortunately has Medicare part D, is in the donut hole, and so either Lovenox, Arixtra or even the newer anticoagulants would be too expensive for her to afford. She will need to remain in house until her INR is therapeutic. - Time Time Spent: 50 to 70 Minutes Critical Time spent with patient: 25-34 minutes - Inpatient Certification Based on my medical assessment, after consideration of the patient's comorbidities, presenting symptoms, or acuity I expect that the services needed warrant INPATIENT care.: Yes I certify that my determination is in accordance with my understanding of Medicare's requirements for reasonable and necessary INPATIENT services [42 CFR 412.3e].: Yes Medical Necessity: Failure to Improve With Outpatient Therapy, Risk of Complication if Not Cared For in Hospital
[2016-05-05] MEDS: LOSARTAN POTASSIUM 50 MG TABLET PO SCH (10:57)
[2016-05-05] MEDS: TIZANIDINE HCL 4 MG TABLET PO SCH ×3 (10:57→18:09)
[2016-05-05] MEDS: GLIPIZIDE 10 MG TABLET PO SCH (10:59)
[2016-05-05] MEDS: OMEGA-3 ACID ETHYL ESTERS 1 GM CAPSULE PO SCH ×2 (10:59→18:09)
[2016-05-05] MEDS: MULTIVITAMIN TABLET PO SCH (10:59)
[2016-05-05] MEDS: VENLAFAXINE HCL 75 MG CAP.SR.24H PO SCH (11:03)
--- NOTE | 2016-05-05 16:06 | PDOC PROGRESS REPORT ---
Subjective Progress Note for:: 05/05/16 Subjective:: Patient feels well no complaints flank pain resolved anticoagulated with lovenox coumadin initiated yesterday Physical Exam Vital Signs: Temp Pulse Resp BP Pulse Ox 98.4 F 68 16 129/68 H 98 05/05/16 00:38 05/05/16 00:38 05/05/16 00:38 05/05/16 00:38 05/05/16 00:38 Intake & Output 05/04/16 05/05/16 05/06/16 00:59 00:59 00:59 Intake Total 300 2738 305 Output Total 2900 Balance 300 -162 305 Weight 95.7 kg 102 kg 102 kg General appearance: PRESENT: no acute distress, well-developed, well-nourished Head exam: PRESENT: atraumatic, normocephalic Eye exam: PRESENT: conjunctiva pink, EOMI, PERRLA. ABSENT: scleral icterus Ear exam: PRESENT: normal external ear exam Mouth exam: PRESENT: moist, tongue midline Neck exam: ABSENT: carotid bruit, JVD, lymphadenopathy, thyromegaly Respiratory exam: PRESENT: clear to auscultation [place]. ABSENT: rales, rhonchi, wheezes Cardiovascular exam: PRESENT: RRR. ABSENT: diastolic murmur, rubs, systolic murmur Pulses: PRESENT: normal dorsalis pedis pul Vascular exam: PRESENT: normal capillary refill GI/Abdominal exam: PRESENT: normal bowel sounds, soft. ABSENT: distended, guarding, mass, organolmegaly, rebound, tenderness Rectal exam: PRESENT: deferred Extremities exam: PRESENT: full ROM. ABSENT: calf tenderness, clubbing, pedal edema Neurological exam: PRESENT: alert, awake, oriented to person, oriented to place , oriented to time, oriented to situation, CN II-XII grossly intact. ABSENT: motor sensory deficit Psychiatric exam: PRESENT: appropriate affect, normal mood. ABSENT: homicidal ideation, suicidal ideation Skin exam: PRESENT: dry, intact, warm. ABSENT: cyanosis, rash Results Laboratory Results: 05/04/16 04:05 05/04/16 04:05 Impressions: Limited or Localized CT 05/03/16 08:24 IMPRESSION: Diffusely abnormal liver as above. 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 Assessment & Plan - Diagnosis (1) Fatty liver Is this a current diagnosis for this admission?: Yes (2) Uncontrolled diabetes mellitus Qualifiers: Diabetes mellitus type: type 2 Diabetes mellitus complication status: without complication Diabetes mellitus computer terminal operator insulin use: without computer terminal operator use Qualified Code(s): E11.65 - Type 2 diabetes mellitus with hyperglycemia Is this a current diagnosis for this admission?: Yes (3) Portal vein thrombosis Is this a current diagnosis for this admission?: Yes (4) Depression Qualifiers: Depression Type: unspecified Qualified Code(s): F32.9 - Major depressive disorder, single episode, unspecified Is this a current diagnosis for this admission?: Yes (5) Tobacco abuse Is this a current diagnosis for this admission?: Yes (6) Dysphagia Qualifiers: Dysphagia type: pharyngoesophageal phase Qualified Code(s): R13.14 - Dysphagia, pharyngoesophageal phase Is this a current diagnosis for this admission?: Yes (7) Hyperlipidemia Is this a current diagnosis for this admission?: Yes - Time Time Spent with patient: continue lovenox/ coumadin coumadin teaching Time Spent with patient: 15-24 minutes
[2016-05-05] MEDS: INSULIN DETEMIR 100 UNIT/ML 3 ML PEN SUBCUT SCH (21:31)
[2016-05-05] MEDS: SIMVASTATIN 40 MG TABLET PO SCH (21:32)
[2016-05-05] MEDS: TRAZODONE HCL 50 MG TABLET PO SCH (21:32)
[2016-05-05] MEDS ORDERED: WARFARIN SODIUM 5 MG TABLET PO SCH (22:00)
[2016-05-06 00:36] LABS: DILUTE RUSSELL VIPOR VENOM 34.9 sec (0.0-44.0); THROMBIN TIME 19.3 sec (0.0-20.9)
[2016-05-06] MEDS: LEVOTHYROXINE SODIUM 0.112 MG TABLET PO SCH (06:06)
[2016-05-06] MEDS: LANSOPRAZOLE 30 MG TAB.RAP.DR PO SCH (06:06)
[2016-05-06] MEDS: ENOXAPARIN SODIUM INJ 100 MG/1 ML DISP.SYRIN SUBCUT SCH ×2 (06:07→17:31)
[2016-05-06 06:55] LABS: PROTHROMBIN TIME 13.8 SEC (11.4-15.4)
[2016-05-06 06:58] LABS: HEMATOCRIT 36.5 % (36.0-47.0); HEMOGLOBIN 12.1 g/dL (12.0-15.5); HGB HCT DIFFERENCE -0.2; MEAN CORPUSCULAR HGB CONC 33.1 g/dL (32.0-36.0); MEAN CORPUSCULAR VOLUME 75 fl (80-97); RED BLOOD COUNT 4.84 10^6/uL (3.72-5.28); RED CELL DISTRIBUTION WIDTH 15.7 % (11.5-14.0); WHITE BLOOD COUNT 4.7 10^3/uL (4.0-10.5)
[2016-05-06 07:31] LABS: ANTITHROMBIN III ACTIVITY 89 % (75-135); LUPUS PANEL INTERPRETATION Comment: (.)
[2016-05-06] MEDS: INSULIN LISPRO 100 UNIT/ML 3 ML VIAL SUBCUT PRN ×4 (08:11→21:59)
[2016-05-06] MEDS: ZIPRASIDONE HCL 40 MG CAPSULE PO SCH ×2 (08:11→17:32)
--- NOTE | 2016-05-06 08:27 | PDOC PROGRESS REPORT ---
Subjective Progress Note for:: 05/06/16 Subjective:: no acute events overnight Physical Exam Vital Signs: Temp Pulse Resp BP Pulse Ox 98.0 F 59 L 15 110/64 98 05/06/16 00:05 05/06/16 00:05 05/06/16 00:05 05/06/16 00:05 05/06/16 00:05 Intake & Output 05/05/16 05/06/16 05/07/16 06:59 06:59 06:59 Intake Total 2038 725 Output Total 2600 1500 Balance -562 -775 Weight 102 kg 102.6 kg General appearance: PRESENT: no acute distress, well-developed, well-nourished Head exam: PRESENT: atraumatic, normocephalic Eye exam: PRESENT: conjunctiva pink, EOMI, PERRLA. ABSENT: scleral icterus Ear exam: PRESENT: normal external ear exam Mouth exam: PRESENT: moist, tongue midline Neck exam: ABSENT: carotid bruit, JVD, lymphadenopathy, thyromegaly Respiratory exam: PRESENT: clear to auscultation [place]. ABSENT: rales, rhonchi, wheezes Cardiovascular exam: PRESENT: RRR. ABSENT: diastolic murmur, rubs, systolic murmur Pulses: PRESENT: normal dorsalis pedis pul Vascular exam: PRESENT: normal capillary refill GI/Abdominal exam: PRESENT: normal bowel sounds, soft. ABSENT: distended, guarding, mass, organolmegaly, rebound, tenderness Rectal exam: PRESENT: deferred Extremities exam: PRESENT: full ROM. ABSENT: calf tenderness, clubbing, pedal edema Neurological exam: PRESENT: alert, awake, oriented to person, oriented to place , oriented to time, oriented to situation, CN II-XII grossly intact. ABSENT: motor sensory deficit Psychiatric exam: PRESENT: appropriate affect, normal mood. ABSENT: homicidal ideation, suicidal ideation Skin exam: PRESENT: dry, intact, warm. ABSENT: cyanosis, rash Results Laboratory Results: 05/06/16 06:14 05/04/16 04:05 05/06/16 06:14 WBC 4.7 RBC 4.84 Hgb 12.1 Hct 36.5 MCV 75 L MCH 25.0 L MCHC 33.1 RDW 15.7 H Plt Count 212 Impressions: Limited or Localized CT 05/03/16 08:24 IMPRESSION: Diffusely abnormal liver as above. 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 Assessment & Plan - Diagnosis (1) Portal vein thrombosis Is this a current diagnosis for this admission?: YesPlan: INR 1.03 today, con't lovenox until INR 2-3. f.u hypercoag w/.u. - Time Time Spent with patient: Less than 15 minutes Critical Time spent with patient: Less than 15 minutes Medications reviewed and adjusted accordingly: Yes - Inpatient Certification Based on my medical assessment, after consideration of the patient's comorbidities, presenting symptoms, or acuity I expect that the services needed warrant INPATIENT care.: Yes I certify that my determination is in accordance with my understanding of Medicare's requirements for reasonable and necessary INPATIENT services [42 CFR 412.3e].: Yes Medical Necessity: Risk of Complication if Not Cared For in Hospital
[2016-05-06] MEDS: LOSARTAN POTASSIUM 50 MG TABLET PO SCH (10:37)
[2016-05-06] MEDS: OMEGA-3 ACID ETHYL ESTERS 1 GM CAPSULE PO SCH ×2 (10:38→17:32)
[2016-05-06] MEDS: MULTIVITAMIN TABLET PO SCH (10:38)
[2016-05-06] MEDS: TIZANIDINE HCL 4 MG TABLET PO SCH ×3 (10:38→17:32)
[2016-05-06] MEDS: GLIPIZIDE 10 MG TABLET PO SCH (10:38)
[2016-05-06] MEDS: VENLAFAXINE HCL 75 MG CAP.SR.24H PO SCH (10:41)
[2016-05-06 15:34] LABS: APPEARANCE,URINE CLEAR; BILIRUBIN,URINE NEGATIVE (NEGATIVE); GLUCOSE, URINE >=500 mg/dL (NEGATIVE); KETONES,URINE NEGATIVE (NEGATIVE); LEUKOCYTE ESTERASE,URINE NEGATIVE (NEGATIVE); NITRITE,URINE NEGATIVE (NEGATIVE); PROTEIN,URINE NEGATIVE (NEGATIVE); URINE SPECIFIC GRAVITY 1.011; UROBILINOGEN,URINE NEGATIVE mg/dL (<2.0)
--- NOTE | 2016-05-06 17:59 | PDOC PROGRESS REPORT ---
Subjective Progress Note for:: 05/06/16 Subjective:: feels well no complaints blood sugars elevated above 200 through day Hemoglobin A1C over 11 Physical Exam Vital Signs: Temp Pulse Resp BP Pulse Ox 97.2 F 66 16 106/63 96 05/06/16 15:08 05/06/16 15:08 05/06/16 15:08 05/06/16 15:08 05/06/16 15:08 Intake & Output 05/05/16 05/06/16 05/07/16 00:59 00:59 00:59 Intake Total 2738 625 405 Output Total 2900 700 800 Balance -162 -75 -395 Weight 102 kg 102 kg 102.6 kg General appearance: PRESENT: no acute distress, well-developed, well-nourished Head exam: PRESENT: atraumatic, normocephalic Eye exam: PRESENT: conjunctiva pink, EOMI, PERRLA. ABSENT: scleral icterus Ear exam: PRESENT: normal external ear exam Mouth exam: PRESENT: moist, tongue midline Neck exam: ABSENT: carotid bruit, JVD, lymphadenopathy, thyromegaly Respiratory exam: PRESENT: clear to auscultation [place]. ABSENT: rales, rhonchi, wheezes Cardiovascular exam: PRESENT: RRR. ABSENT: diastolic murmur, rubs, systolic murmur Pulses: PRESENT: normal dorsalis pedis pul Vascular exam: PRESENT: normal capillary refill GI/Abdominal exam: PRESENT: normal bowel sounds, soft. ABSENT: distended, guarding, mass, organolmegaly, rebound, tenderness Rectal exam: PRESENT: deferred Extremities exam: PRESENT: full ROM. ABSENT: calf tenderness, clubbing, pedal edema Neurological exam: PRESENT: alert, awake, oriented to person, oriented to place , oriented to time, oriented to situation, CN II-XII grossly intact. ABSENT: motor sensory deficit Psychiatric exam: PRESENT: appropriate affect, normal mood. ABSENT: homicidal ideation, suicidal ideation Skin exam: PRESENT: dry, intact, warm. ABSENT: cyanosis, rash Results Laboratory Results: 05/06/16 06:14 05/04/16 04:05 05/06/16 05/06/16 06:14 15:12 WBC 4.7 RBC 4.84 Hgb 12.1 Hct 36.5 MCV 75 L MCH 25.0 L MCHC 33.1 RDW 15.7 H Plt Count 212 Urine Color YELLOW Urine Appearance CLEAR Urine pH 5.0 Ur Specific [place] 1.011 Urine Protein NEGATIVE Urine Glucose (UA) >=500 H Urine Ketones NEGATIVE Urine Blood SMALL H Urine Nitrite NEGATIVE Ur Leukocyte Esterase NEGATIVE Urine WBC (Auto) 1 Impressions: Limited or Localized CT 05/03/16 08:24 IMPRESSION: Diffusely abnormal liver as above. 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 Assessment & Plan - Diagnosis (1) Fatty liver Is this a current diagnosis for this admission?: Yes (2) Uncontrolled diabetes mellitus Qualifiers: Diabetes mellitus type: type 2 Diabetes mellitus complication status: without complication Diabetes mellitus long term care social worker insulin use: without long term care social worker use Qualified Code(s): E11.65 - Type 2 diabetes mellitus with hyperglycemia Is this a current diagnosis for this admission?: YesPlan: patient wishes to switch insulin to NPH 70/30 as she could not afford levemir will start at 40 units SC bid and reevaluate needs (3) Portal vein thrombosis Is this a current diagnosis for this admission?: YesPlan: continue anticoagulation with coumadin / lovenox Patient will remain in hospital till INR is therapeutic (4) Depression Qualifiers: Depression Type: unspecified Qualified Code(s): F32.9 - Major depressive disorder, single episode, unspecified Is this a current diagnosis for this admission?: Yes (5) Tobacco abuse Is this a current diagnosis for this admission?: Yes (6) Dysphagia Qualifiers: Dysphagia type: pharyngoesophageal phase Qualified Code(s): R13.14 - Dysphagia, pharyngoesophageal phase Is this a current diagnosis for this admission?: Yes (7) Hyperlipidemia Is this a current diagnosis for this admission?: Yes - Time Time Spent with patient: 25-34 minutes
[2016-05-06] MEDS ORDERED: HUM INSULIN NPH/REG INSULIN HM 100 UNIT/1 ML 3 ML SUBCUT SCH (18:00)
[2016-05-06] MEDS ORDERED: HUM INSULIN NPH/REG INSULIN HM 100 UNIT/1 ML 3 ML SUBCUT ONE (19:00)
[2016-05-06] MEDS: TRAZODONE HCL 50 MG TABLET PO SCH (21:56)
[2016-05-06] MEDS: SIMVASTATIN 40 MG TABLET PO SCH (21:56)
[2016-05-06] MEDS: WARFARIN SODIUM 7.5 MG TABLET PO SCH (21:56)
[2016-05-07] MEDS: LANSOPRAZOLE 30 MG TAB.RAP.DR PO SCH (06:39)
[2016-05-07] MEDS: LEVOTHYROXINE SODIUM 0.112 MG TABLET PO SCH (06:39)
[2016-05-07] MEDS: ENOXAPARIN SODIUM INJ 100 MG/1 ML DISP.SYRIN SUBCUT SCH ×2 (06:39→17:48)
[2016-05-07] MEDS ORDERED: HUM INSULIN NPH/REG INSULIN HM 100 UNIT/1 ML 3 ML SUBCUT SCH (08:00)
[2016-05-07] MEDS: ZIPRASIDONE HCL 40 MG CAPSULE PO SCH ×2 (08:04→17:48)
[2016-05-07] MEDS: TIZANIDINE HCL 4 MG TABLET PO SCH ×3 (10:14→17:48)
[2016-05-07] MEDS: MULTIVITAMIN TABLET PO SCH (10:14)
[2016-05-07] MEDS: VENLAFAXINE HCL 75 MG CAP.SR.24H PO SCH (10:14)
[2016-05-07] MEDS: LOSARTAN POTASSIUM 50 MG TABLET PO SCH (10:15)
[2016-05-07] MEDS: OMEGA-3 ACID ETHYL ESTERS 1 GM CAPSULE PO SCH ×2 (10:15→17:48)
[2016-05-07] MEDS: GLIPIZIDE 10 MG TABLET PO SCH (10:15)
--- NOTE | 2016-05-07 11:24 | PDOC PROGRESS REPORT ---
Subjective Progress Note for:: 05/07/16 Subjective:: No acute events overnight, no INR yet drawn today Physical Exam Vital Signs: Temp Pulse Resp BP Pulse Ox 97.8 F 75 14 143/77 H 99 05/07/16 07:41 05/07/16 07:41 05/07/16 07:41 05/07/16 07:41 05/07/16 07:41 Intake & Output 05/06/16 05/07/16 05/08/16 06:59 06:59 06:59 Intake Total 725 1363 Output Total 1500 3000 Balance -775 -1637 Weight 102.6 kg 102.6 kg General appearance: PRESENT: no acute distress, well-developed, well-nourished Head exam: PRESENT: atraumatic, normocephalic Eye exam: PRESENT: conjunctiva pink, EOMI, PERRLA. ABSENT: scleral icterus Ear exam: PRESENT: normal external ear exam Mouth exam: PRESENT: moist, tongue midline Neck exam: ABSENT: carotid bruit, JVD, lymphadenopathy, thyromegaly Respiratory exam: PRESENT: clear to auscultation [place]. ABSENT: rales, rhonchi, wheezes Cardiovascular exam: PRESENT: RRR. ABSENT: diastolic murmur, rubs, systolic murmur Pulses: PRESENT: normal dorsalis pedis pul Vascular exam: PRESENT: normal capillary refill GI/Abdominal exam: PRESENT: normal bowel sounds, soft. ABSENT: distended, guarding, mass, organolmegaly, rebound, tenderness Rectal exam: PRESENT: deferred Extremities exam: PRESENT: full ROM. ABSENT: calf tenderness, clubbing, pedal edema Neurological exam: PRESENT: alert, awake, oriented to person, oriented to place , oriented to time, oriented to situation, CN II-XII grossly intact. ABSENT: motor sensory deficit Psychiatric exam: PRESENT: appropriate affect, normal mood. ABSENT: homicidal ideation, suicidal ideation Skin exam: PRESENT: dry, intact, warm. ABSENT: cyanosis, rash Results Laboratory Results: 05/06/16 06:14 05/04/16 04:05 05/06/16 05/07/16 15:12 09:01 Urine Color YELLOW Urine Appearance CLEAR Urine pH 5.0 Ur Specific [place] 1.011 Urine Protein NEGATIVE Urine Glucose (UA) >=500 H Urine Ketones NEGATIVE Urine Blood SMALL H Urine Nitrite NEGATIVE Ur Leukocyte Esterase NEGATIVE Urine WBC (Auto) 1 Stool Occult Blood NEGATIVE Impressions: Limited or Localized CT 05/03/16 08:24 IMPRESSION: Diffusely abnormal liver as above. 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 Assessment & Plan - Diagnosis (1) Portal vein thrombosis Is this a current diagnosis for this admission?: YesPlan: INR sent this am, awaiting results, con't lovenox until INR 2-3, con't warfarin 5mg daily. - Time Time Spent with patient: 15-24 minutes Critical Time spent with patient: 15-24 minutes - Inpatient Certification Based on my medical assessment, after consideration of the patient's comorbidities, presenting symptoms, or acuity I expect that the services needed warrant INPATIENT care.: Yes I certify that my determination is in accordance with my understanding of Medicare's requirements for reasonable and necessary INPATIENT services [42 CFR 412.3e].: Yes Medical Necessity: Risk of Complication if Not Cared For in Hospital
[2016-05-07] MEDS: INSULIN LISPRO 100 UNIT/ML 3 ML VIAL SUBCUT PRN ×2 (12:05→17:47)
--- NOTE | 2016-05-07 14:41 | PDOC PROGRESS REPORT ---
Subjective Progress Note for:: 05/07/16 Subjective:: feels well no complaints INR not therapeutic yet Physical Exam Vital Signs: Temp Pulse Resp BP Pulse Ox 97.5 F 122 H 16 122/58 L 99 05/07/16 11:19 05/07/16 11:19 05/07/16 11:19 05/07/16 11:19 05/07/16 11:19 Intake & Output 05/06/16 05/07/16 05/08/16 00:59 00:59 00:59 Intake Total 625 1368 400 Output Total 700 2800 1000 Balance -75 -1432 -600 Weight 102 kg 102.6 kg 102.6 kg General appearance: PRESENT: no acute distress, well-developed, well-nourished Head exam: PRESENT: atraumatic, normocephalic Eye exam: PRESENT: conjunctiva pink, EOMI, PERRLA. ABSENT: scleral icterus Ear exam: PRESENT: normal external ear exam Mouth exam: PRESENT: moist, tongue midline Neck exam: ABSENT: carotid bruit, JVD, lymphadenopathy, thyromegaly Respiratory exam: PRESENT: clear to auscultation [place]. ABSENT: rales, rhonchi, wheezes Cardiovascular exam: PRESENT: RRR. ABSENT: diastolic murmur, rubs, systolic murmur Pulses: PRESENT: normal dorsalis pedis pul Vascular exam: PRESENT: normal capillary refill GI/Abdominal exam: PRESENT: normal bowel sounds, soft. ABSENT: distended, guarding, mass, organolmegaly, rebound, tenderness Rectal exam: PRESENT: deferred Extremities exam: PRESENT: full ROM. ABSENT: calf tenderness, clubbing, pedal edema Neurological exam: PRESENT: alert, awake, oriented to person, oriented to place , oriented to time, oriented to situation, CN II-XII grossly intact. ABSENT: motor sensory deficit Psychiatric exam: PRESENT: appropriate affect, normal mood. ABSENT: homicidal ideation, suicidal ideation Skin exam: PRESENT: dry, intact, warm. ABSENT: cyanosis, rash Results Laboratory Results: 05/06/16 06:14 05/04/16 04:05 05/06/16 05/07/16 15:12 09:01 Urine Color YELLOW Urine Appearance CLEAR Urine pH 5.0 Ur Specific [place] 1.011 Urine Protein NEGATIVE Urine Glucose (UA) >=500 H Urine Ketones NEGATIVE Urine Blood SMALL H Urine Nitrite NEGATIVE Ur Leukocyte Esterase NEGATIVE Urine WBC (Auto) 1 Stool Occult Blood NEGATIVE Impressions: Limited or Localized CT 05/03/16 08:24 IMPRESSION: Diffusely abnormal liver as above. 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 Assessment & Plan - Diagnosis (1) Fatty liver Is this a current diagnosis for this admission?: Yes (2) Uncontrolled diabetes mellitus Qualifiers: Diabetes mellitus type: type 2 Diabetes mellitus complication status: without complication Diabetes mellitus intermediate card tender insulin use: without retirement use Qualified Code(s): E11.65 - Type 2 diabetes mellitus with hyperglycemia Is this a current diagnosis for this admission?: YesPlan: adjusting NPH for optimal control (3) Portal vein thrombosis Is this a current diagnosis for this admission?: YesPlan: increased coumadin to 7.5 mg daily (4) Depression Qualifiers: Depression Type: unspecified Qualified Code(s): F32.9 - Major depressive disorder, single episode, unspecified Is this a current diagnosis for this admission?: Yes (5) Tobacco abuse Is this a current diagnosis for this admission?: Yes (6) Dysphagia Qualifiers: Dysphagia type: pharyngoesophageal phase Qualified Code(s): R13.14 - Dysphagia, pharyngoesophageal phase Is this a current diagnosis for this admission?: Yes (7) Hyperlipidemia Is this a current diagnosis for this admission?: Yes - Time Time Spent with patient: 15-24 minutes
[2016-05-07 16:03] LABS: PROTHROMBIN TIME 16.2 SEC (11.4-15.4)
[2016-05-07] MEDS: HUM INSULIN NPH/REG INSULIN HM 100 UNIT/1 ML 3 ML SUBCUT SCH (17:47)
[2016-05-07] MEDS: WARFARIN SODIUM 7.5 MG TABLET PO SCH (22:44)
[2016-05-07] MEDS: TRAZODONE HCL 50 MG TABLET PO SCH (22:44)
[2016-05-07] MEDS: SIMVASTATIN 40 MG TABLET PO SCH (22:44)
[2016-05-08] MEDS: LANSOPRAZOLE 30 MG TAB.RAP.DR PO SCH (06:36)
[2016-05-08] MEDS: ENOXAPARIN SODIUM INJ 100 MG/1 ML DISP.SYRIN SUBCUT SCH ×2 (06:36→17:21)
[2016-05-08] MEDS: LEVOTHYROXINE SODIUM 0.112 MG TABLET PO SCH (06:36)
[2016-05-08 06:39] LABS: PROTHROMBIN TIME 17.4 SEC (11.4-15.4)
[2016-05-08] MEDS ORDERED: WARFARIN SODIUM 7.5 MG TABLET PO SCH (07:30)
[2016-05-08] MEDS: LOSARTAN POTASSIUM 50 MG TABLET PO SCH (09:57)
[2016-05-08] MEDS: ZIPRASIDONE HCL 40 MG CAPSULE PO SCH ×2 (09:57→17:21)
[2016-05-08] MEDS: VENLAFAXINE HCL 75 MG CAP.SR.24H PO SCH (09:57)
[2016-05-08] MEDS: OMEGA-3 ACID ETHYL ESTERS 1 GM CAPSULE PO SCH ×2 (09:57→17:22)
[2016-05-08] MEDS: TIZANIDINE HCL 4 MG TABLET PO SCH ×3 (09:58→17:22)
[2016-05-08] MEDS: MULTIVITAMIN TABLET PO SCH (09:58)
[2016-05-08] MEDS: HUM INSULIN NPH/REG INSULIN HM 100 UNIT/1 ML 3 ML SUBCUT SCH ×2 (09:59→17:21)
[2016-05-08] MEDS: GLIPIZIDE 10 MG TABLET PO SCH (09:59)
[2016-05-08] MEDS: INSULIN LISPRO 100 UNIT/ML 3 ML VIAL SUBCUT PRN ×3 (12:24→21:49)
--- NOTE | 2016-05-08 17:26 | PDOC PROGRESS REPORT ---
Subjective Progress Note for:: 05/08/16 Subjective:: Patient is feeling very well she has no complaints; she has been ambulating The INR is 1.34 Blood sugars are better controlled Physical Exam Vital Signs: Temp Pulse Resp BP Pulse Ox 98.9 F 77 16 131/98 H 99 05/08/16 12:00 05/08/16 12:00 05/08/16 12:00 05/08/16 12:00 05/08/16 11:40 Intake & Output 05/07/16 05/08/16 05/09/16 00:59 00:59 00:59 Intake Total 1368 2350 1352 Output Total 2800 3000 1000 Balance -1432 -650 352 Weight 102.6 kg 102.6 kg 102.7 kg General appearance: PRESENT: no acute distress, well-developed, well-nourished Head exam: PRESENT: atraumatic, normocephalic Eye exam: PRESENT: conjunctiva pink, EOMI, PERRLA. ABSENT: scleral icterus Ear exam: PRESENT: normal external ear exam Mouth exam: PRESENT: moist, tongue midline Neck exam: ABSENT: carotid bruit, JVD, lymphadenopathy, thyromegaly Respiratory exam: PRESENT: clear to auscultation [place]. ABSENT: rales, rhonchi, wheezes Cardiovascular exam: PRESENT: RRR. ABSENT: diastolic murmur, rubs, systolic murmur Pulses: PRESENT: normal dorsalis pedis pul Vascular exam: PRESENT: normal capillary refill GI/Abdominal exam: PRESENT: normal bowel sounds, soft. ABSENT: distended, guarding, mass, organolmegaly, rebound, tenderness Rectal exam: PRESENT: deferred Extremities exam: PRESENT: full ROM. ABSENT: calf tenderness, clubbing, pedal edema Neurological exam: PRESENT: alert, awake, oriented to person, oriented to place , oriented to time, oriented to situation, CN II-XII grossly intact. ABSENT: motor sensory deficit Psychiatric exam: PRESENT: appropriate affect, normal mood. ABSENT: homicidal ideation, suicidal ideation Skin exam: PRESENT: dry, intact, warm. ABSENT: cyanosis, rash Results Laboratory Results: 05/06/16 06:14 05/04/16 04:05 Impressions: Limited or Localized CT 05/03/16 08:24 IMPRESSION: Diffusely abnormal liver as above. 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 Assessment & Plan - Diagnosis (1) Fatty liver Is this a current diagnosis for this admission?: Yes (2) Uncontrolled diabetes mellitus Qualifiers: Diabetes mellitus type: type 2 Diabetes mellitus complication status: without complication Diabetes mellitus milk tester insulin use: without milk tester use Qualified Code(s): E11.65 - Type 2 diabetes mellitus with hyperglycemia Is this a current diagnosis for this admission?: Yes (3) Portal vein thrombosis Is this a current diagnosis for this admission?: Yes (4) Depression Qualifiers: Depression Type: unspecified Qualified Code(s): F32.9 - Major depressive disorder, single episode, unspecified Is this a current diagnosis for this admission?: Yes (5) Tobacco abuse Is this a current diagnosis for this admission?: Yes (6) Dysphagia Qualifiers: Dysphagia type: pharyngoesophageal phase Qualified Code(s): R13.14 - Dysphagia, pharyngoesophageal phase Is this a current diagnosis for this admission?: Yes (7) Hyperlipidemia Is this a current diagnosis for this admission?: Yes - Time Time Spent with patient: Increase Coumadin to 10 mg by mouth daily ; PT/INR in a.m. Patient may be discharged as soon as the INR is therapeutic between 2 and 3 Time Spent with patient: 15-24 minutes
[2016-05-08] MEDS: WARFARIN SODIUM 5 MG TABLET PO SCH (21:43)
[2016-05-08] MEDS: TRAZODONE HCL 50 MG TABLET PO SCH (21:43)
[2016-05-08] MEDS: SIMVASTATIN 40 MG TABLET PO SCH (21:43)
[2016-05-09] MEDS: ENOXAPARIN SODIUM INJ 100 MG/1 ML DISP.SYRIN SUBCUT SCH ×2 (06:48→17:47)
[2016-05-09] MEDS: LEVOTHYROXINE SODIUM 0.112 MG TABLET PO SCH (06:48)
[2016-05-09] MEDS: LANSOPRAZOLE 30 MG TAB.RAP.DR PO SCH (06:48)
[2016-05-09 07:06] LABS: HEMATOCRIT 35.8 % (36.0-47.0); HEMOGLOBIN 12.1 g/dL (12.0-15.5); HGB HCT DIFFERENCE 0.5; MEAN CORPUSCULAR HEMOGLOBIN 25.1 pg (27.0-33.4); MEAN CORPUSCULAR HGB CONC 33.8 g/dL (32.0-36.0); MEAN CORPUSCULAR VOLUME 74 fl (80-97); RED BLOOD COUNT 4.81 10^6/uL (3.72-5.28); RED CELL DISTRIBUTION WIDTH 16.1 % (11.5-14.0); WHITE BLOOD COUNT 5.3 10^3/uL (4.0-10.5)
[2016-05-09 07:11] LABS: PROTHROMBIN TIME 19.6 SEC (11.4-15.4)
--- NOTE | 2016-05-09 08:19 | PDOC PROGRESS REPORT ---
Subjective Progress Note for:: 05/09/16 Subjective:: No acute events overnight Physical Exam Vital Signs: Temp Pulse Resp BP Pulse Ox 97.6 F 62 17 116/68 100 05/09/16 00:00 05/09/16 00:00 05/09/16 00:00 05/09/16 00:00 05/09/16 00:00 Intake & Output 05/08/16 05/09/16 05/10/16 06:59 06:59 06:59 Intake Total 2790 1172 Output Total 2000 1000 Balance 790 172 Weight 102.7 kg 103 kg General appearance: PRESENT: no acute distress, well-developed, well-nourished Head exam: PRESENT: atraumatic, normocephalic Eye exam: PRESENT: conjunctiva pink, EOMI, PERRLA. ABSENT: scleral icterus Ear exam: PRESENT: normal external ear exam Mouth exam: PRESENT: moist, tongue midline Neck exam: ABSENT: carotid bruit, JVD, lymphadenopathy, thyromegaly Respiratory exam: PRESENT: clear to auscultation [place]. ABSENT: rales, rhonchi, wheezes Cardiovascular exam: PRESENT: RRR. ABSENT: diastolic murmur, rubs, systolic murmur Pulses: PRESENT: normal dorsalis pedis pul Vascular exam: PRESENT: normal capillary refill GI/Abdominal exam: PRESENT: normal bowel sounds, soft. ABSENT: distended, guarding, mass, organolmegaly, rebound, tenderness Rectal exam: PRESENT: deferred Extremities exam: PRESENT: full ROM. ABSENT: calf tenderness, clubbing, pedal edema Neurological exam: PRESENT: alert, awake, oriented to person, oriented to place , oriented to time, oriented to situation, CN II-XII grossly intact. ABSENT: motor sensory deficit Psychiatric exam: PRESENT: appropriate affect, normal mood. ABSENT: homicidal ideation, suicidal ideation Skin exam: PRESENT: dry, intact, warm. ABSENT: cyanosis, rash Results Laboratory Results: 05/09/16 06:45 05/04/16 04:05 05/09/16 06:45 WBC 5.3 RBC 4.81 Hgb 12.1 Hct 35.8 L MCV 74 L MCH 25.1 L MCHC 33.8 RDW 16.1 H Plt Count 190 Impressions: Limited or Localized CT 05/03/16 08:24 IMPRESSION: Diffusely abnormal liver as above. 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 Assessment & Plan - Diagnosis (1) Portal vein thrombosis Is this a current diagnosis for this admission?: YesPlan: INR is up to 1.59, Coumadin was increased, continue with daily INR, goal INR of 2-3 then discharge can happen. - Time Time Spent with patient: 15-24 minutes Critical Time spent with patient: 15-24 minutes - Inpatient Certification Based on my medical assessment, after consideration of the patient's comorbidities, presenting symptoms, or acuity I expect that the services needed warrant INPATIENT care.: Yes I certify that my determination is in accordance with my understanding of Medicare's requirements for reasonable and necessary INPATIENT services [42 CFR 412.3e].: Yes Medical Necessity: Risk of Complication if Not Cared For in Hospital
[2016-05-09] MEDS: HUM INSULIN NPH/REG INSULIN HM 100 UNIT/1 ML 3 ML SUBCUT SCH ×2 (09:59→16:31)
[2016-05-09] MEDS: INSULIN LISPRO 100 UNIT/ML 3 ML VIAL SUBCUT PRN ×3 (10:00→21:17)
[2016-05-09] MEDS: VENLAFAXINE HCL 75 MG CAP.SR.24H PO SCH (10:00)
[2016-05-09] MEDS: TIZANIDINE HCL 4 MG TABLET PO SCH ×3 (10:00→17:47)
[2016-05-09] MEDS: ZIPRASIDONE HCL 40 MG CAPSULE PO SCH ×2 (10:00→16:31)
[2016-05-09] MEDS: METFORMIN HCL 500 MG TABLET PO SCH ×2 (10:01→16:31)
[2016-05-09] MEDS: OMEGA-3 ACID ETHYL ESTERS 1 GM CAPSULE PO SCH ×2 (10:01→17:47)
[2016-05-09] MEDS: GLIPIZIDE 10 MG TABLET PO SCH (10:01)
[2016-05-09] MEDS: LOSARTAN POTASSIUM 50 MG TABLET PO SCH (10:01)
[2016-05-09] MEDS: MULTIVITAMIN TABLET PO SCH (10:02)
[2016-05-09] MEDS ORDERED: HUM INSULIN NPH/REG INSULIN HM 100 UNIT/1 ML 3 ML SUBCUT SCH (10:37)
[2016-05-09 18:22] LABS: APPEARANCE,URINE CLEAR; BILIRUBIN,URINE NEGATIVE (NEGATIVE); GLUCOSE, URINE NEGATIVE (NEGATIVE); KETONES,URINE NEGATIVE (NEGATIVE); LEUKOCYTE ESTERASE,URINE NEGATIVE (NEGATIVE); NITRITE,URINE NEGATIVE (NEGATIVE); PROTEIN,URINE NEGATIVE (NEGATIVE); URINE SPECIFIC GRAVITY 1.008; UROBILINOGEN,URINE NEGATIVE mg/dL (<2.0)
[2016-05-09] MEDS: SIMVASTATIN 40 MG TABLET PO SCH (21:16)
[2016-05-09] MEDS: WARFARIN SODIUM 5 MG TABLET PO SCH (21:16)
[2016-05-09] MEDS: TRAZODONE HCL 50 MG TABLET PO SCH (21:17)
[2016-05-10 04:59] LABS: PROTHROMBIN TIME 23.3 SEC (11.4-15.4)
[2016-05-10] MEDS: ENOXAPARIN SODIUM INJ 100 MG/1 ML DISP.SYRIN SUBCUT SCH (05:38)
[2016-05-10] MEDS: LANSOPRAZOLE 30 MG TAB.RAP.DR PO SCH (05:39)
[2016-05-10] MEDS: LEVOTHYROXINE SODIUM 0.112 MG TABLET PO SCH (05:39)
[2016-05-10] MEDS ORDERED: HUM INSULIN NPH/REG INSULIN HM 100 UNIT/1 ML 3 ML SUBCUT SCH (08:00)
--- NOTE | 2016-05-10 08:13 | PDOC PROGRESS REPORT ---
Subjective Progress Note for:: 05/10/16 Subjective:: Patient is doing well, INR is 1.98 today Physical Exam Vital Signs: Temp Pulse Resp BP Pulse Ox 98.8 F 63 18 106/58 L 98 05/09/16 19:37 05/09/16 19:37 05/09/16 19:37 05/09/16 19:37 05/09/16 19:37 Intake & Output 05/09/16 05/10/16 05/11/16 06:59 06:59 06:59 Intake Total 1172 1838 Output Total 1000 300 Balance 172 1538 Weight 103 kg 104 kg General appearance: PRESENT: no acute distress, well-developed, well-nourished Head exam: PRESENT: atraumatic, normocephalic Eye exam: PRESENT: conjunctiva pink, EOMI, PERRLA. ABSENT: scleral icterus Ear exam: PRESENT: normal external ear exam Mouth exam: PRESENT: moist, tongue midline Neck exam: ABSENT: carotid bruit, JVD, lymphadenopathy, thyromegaly Respiratory exam: PRESENT: clear to auscultation [place]. ABSENT: rales, rhonchi, wheezes Cardiovascular exam: PRESENT: RRR. ABSENT: diastolic murmur, rubs, systolic murmur Pulses: PRESENT: normal dorsalis pedis pul Vascular exam: PRESENT: normal capillary refill GI/Abdominal exam: PRESENT: normal bowel sounds, soft. ABSENT: distended, guarding, mass, organolmegaly, rebound, tenderness Rectal exam: PRESENT: deferred Extremities exam: PRESENT: full ROM. ABSENT: calf tenderness, clubbing, pedal edema Neurological exam: PRESENT: alert, awake, oriented to person, oriented to place , oriented to time, oriented to situation, CN II-XII grossly intact. ABSENT: motor sensory deficit Psychiatric exam: PRESENT: appropriate affect, normal mood. ABSENT: homicidal ideation, suicidal ideation Skin exam: PRESENT: dry, intact, warm. ABSENT: cyanosis, rash Results Laboratory Results: 05/09/16 06:45 05/04/16 04:05 05/09/16 18:01 Urine Color YELLOW Urine Appearance CLEAR Urine pH 6.0 Ur Specific [place] 1.008 Urine Protein NEGATIVE Urine Glucose (UA) NEGATIVE Urine Ketones NEGATIVE Urine Blood SMALL H Urine Nitrite NEGATIVE Ur Leukocyte Esterase NEGATIVE Urine WBC (Auto) 0 Urine RBC (Auto) 1 Impressions: Limited or Localized CT 05/03/16 08:24 IMPRESSION: Diffusely abnormal liver as above. 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 Assessment & Plan - Diagnosis (1) Portal vein thrombosis Is this a current diagnosis for this admission?: YesPlan: INR is 1.98 today, from a hematologic standpoint that is appropriate. She can be discharged. She should be on warfarin 7.5 mg, I will ask hospitalist team to give her Rx for the 5 and 2.5 mg. She will need INR in our office on Monday , this is being set up by [employer]. She'll have follow-up in our office next week for an official office visit. - Time Time Spent with patient: 25-34 minutes Critical Time spent with patient: 25-34 minutes Anticipated discharge: Home
[2016-05-10 08:18] VITALS: BP 129/67
--- NOTE | 2016-05-10 09:00 | Physician Advisory Note ---
Physician Advisor ProgressNote .: [facility] have [facility] the medical record for this patient. Physician Advisor Statement: Please document the principal dx (the dx primarily responsible for bringing pt into the hospital) as dx #1 in each note. (Alternately, can document "this is the principal dx" on that dx.) R.e. status: Pt came in 05/03 with portal vein thrombosis w/cavernous transformation, had appropriate w/u & tx. On 05/04, EHR said pt not appropriate for Inpt care, just outpt. (Status change wasn't pursued then due to (+)d/c order, per .) Plan was d/c on 05/04, only kept b/c couldn't afford Lovenox or equivalent outpt. Therefore, it's hard to justify change to Inpt at that point if she wasn't approp for Inpt before then. And at that point, she had only been in [facility], too. No new issues developed subsequently that would require Inpatient status. - She was initially appropriate for Outpt Obs; then, as of 05/04, "Outpt in a Bed" if hospital pharmacy unable to provide some Lovenox so as to avoid continued hospital days. Thanks! CK
[2016-05-10] MEDS: MULTIVITAMIN TABLET PO SCH (09:47)
[2016-05-10] MEDS: GLIPIZIDE 10 MG TABLET PO SCH (09:47)
[2016-05-10] MEDS: LOSARTAN POTASSIUM 50 MG TABLET PO SCH (09:47)
[2016-05-10] MEDS: ZIPRASIDONE HCL 40 MG CAPSULE PO SCH (09:48)
[2016-05-10] MEDS: METFORMIN HCL 500 MG TABLET PO SCH (09:48)
[2016-05-10] MEDS: TIZANIDINE HCL 4 MG TABLET PO SCH (09:48)
[2016-05-10] MEDS: VENLAFAXINE HCL 75 MG CAP.SR.24H PO SCH (09:49)
[2016-05-10] MEDS: OMEGA-3 ACID ETHYL ESTERS 1 GM CAPSULE PO SCH (09:59)
--- NOTE | 2016-05-10 14:42 | PDOC DISCHARGE SUMMARY ---
General - Admit/Disc Date/PCP Admission Date/Primary Care Provider: 05/03/16 13:15 Discharge Date: 05/10/16 - Discharge Diagnosis (1) Diabetes 1.5, managed as type 1 Summary: Patient is done much better with the change in her regimen to NPH 70/30 with split dosing of 55 units in the morning and 40 units in the afternoon for about a excellent coverage of her capillary blood glucoses now normally ranging between 150 and 200. Recommend continuing same rather than a regimen she presented with. She should continue to check her capillary blood glucoses every before meals and at bedtime for at least 2 weeks and provide her primary care provider with that data to make further adjustments in her insulin regimen (2) Portal vein thrombosis Is this a current diagnosis for this admission?: YesSummary: Patient was treated with Lovenox as bridge to therapeutic INR utilizing Coumadin 10 mg per day. Her INR today is 1.98. After discussions with hematology as she is felt to be stable for discharge home lower dose at 7.5 mg daily with follow-up INR in 1 week for dose adjustment. Risks of Coumadin use were discussed with the patient all questions asked and answered to the best of my ability. - Additional Information Resuscitation Status: Full Code Discharge Diet: Cardiac, Diabetic Discharge Activity: Activity As Tolerated Home Medications: Levothyroxine Sodium [Synthroid 0.112 mg Tablet] 112 mcg PO DAILY 03/12/16 Losartan Potassium 100 mg PO DAILY 03/12/16 Metformin HCl [Glucophage] 1,000 mg PO BID 03/12/16 Simvastatin 40 mg PO QHS 03/12/16 Tizanidine HCl 4 mg PO TID 03/12/16 Trazodone HCl 150 mg PO QHS 03/12/16 Venlafaxine HCl [Venlafaxine HCl ER] 225 mg PO DAILY 03/12/16 Ziprasidone HCl [Geodon] 80 mg PO BID 03/12/16 Glipizide [Glucotrol 10 mg Tablet] 10 mg PO DAILY 05/03/16 Multivitamin [Tab-A-Bro] 1 each PO DAILY 05/03/16 Insulin Detemir [Levemir Flextouch] 75 unit SQ QHS #1 pe 05/04/16 Hum Insulin NPH/Reg Insulin Hm [Insulin 70-30 (NPH/Reg) 100 unit/mL] 40 unit SUBCUT ACSUPPER #1 vial 05/10/16 Hum Insulin NPH/Reg Insulin Hm [Insulin 70-30 (NPH/Reg) 100 unit/mL] 55 unit SUBCUT ACBRKFST #1 vial 05/10/16 Warfarin Sodium [Coumadin 5 mg Tablet] 5 mg PO QHS #30 tablet 05/10/16 Warfarin Sodium [Coumadin] 2.5 mg PO DAILY #30 tablet 05/10/16 History of Present Illness Patient complains of: Right-sided abdominal pain History of Present Illness: BOBO ANAYA is a 55 year old female Presented with the above complaint. CT scan in the emergency department showed portal vein thrombosis and a questionable gastric mass. GI was consult it and performed upper endoscopy with antral biopsy no masses seen. She was seen by hematology who recommended starting on Lovenox empirically as a bridge to therapeutic Coumadin. She has tolerated that treatment plan without difficulty. She is now therapeutic on her INR stable from a hemodynamic standpoint and able to be discharged home.. Hospital Course Hospital Course: As above Physical Exam Vital Signs: Temp Pulse Resp BP Pulse Ox 97.9 F 68 16 129/67 H 99 05/10/16 11:31 05/10/16 11:31 05/10/16 11:31 05/10/16 11:31 05/10/16 11:31 Intake & Output 05/09/16 05/10/16 05/11/16 06:59 06:59 06:59 Intake Total 1172 1838 Output Total 1000 300 Balance 172 1538 Weight 103 kg 104 kg Results Laboratory Results: 05/09/16 06:45 05/04/16 04:05 05/09/16 18:01 Urine Color YELLOW Urine Appearance CLEAR Urine pH 6.0 Ur Specific [place] 1.008 Urine Protein NEGATIVE Urine Glucose (UA) NEGATIVE Urine Ketones NEGATIVE Urine Blood SMALL H Urine Nitrite NEGATIVE Ur Leukocyte Esterase NEGATIVE Urine WBC (Auto) 0 Urine RBC (Auto) 1 Impressions: Limited or Localized CT 05/03/16 08:24 IMPRESSION: Diffusely abnormal liver as above. 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 Plan Discharge Plan: Follow-up with hematology in one week for repeat INR and Coumadin dose adjustment
[2016-05-10 15:38] LABS: PROTEIN C ACTIVITY 98 % (73-180); PROTEIN C ANTIGEN 70 % (60-150); PROTEIN S FREE 94 % (57-157); PROTEIN S TOTAL 116 % (60-150)
[2016-05-10 16:11] LABS: FACTOR V ACTIVITY 86 % (70-150); PROTEIN S FUNCTIONAL 86 % (63-140)
== END 2016-05-10 11:46 | disposition home or self-care (01) | DRG 443 ==
LOC: ER 07:23 → EH 13:15 → 5 15:08
PROVIDERS: ADMIT Emergency Medicine; ATTEND Emergency Medicine
PROC: 0DB68ZX Excision of Stomach, Via Natural or Artificial Opening Endoscopic, Diagnostic (ICD-10-PCS; principal; 2016-05-03 16:30)
DX: I81 Portal vein thrombosis (principal); K29.50 Unspecified chronic gastritis without bleeding; K76.0 Fatty (change of) liver, not elsewhere classified; I10 Essential (primary) hypertension; E78.5 Hyperlipidemia, unspecified; E11.65 Type 2 diabetes mellitus with hyperglycemia; R13.13 Dysphagia, pharyngeal phase; K21.9 Gastro-esophageal reflux disease without esophagitis; F31.9 Bipolar disorder, unspecified; F17.210 Nicotine dependence, cigarettes, uncomplicated; Z90.49 Acquired absence of other specified parts of digestive tract; Z82.49 Family history of ischemic heart disease and other diseases of the circulatory system; Z88.2 Allergy status to sulfonamides; Z88.1 Allergy status to other antibiotic agents; Z79.4 Long term (current) use of insulin; Z84.89 Family history of other specified conditions
CPT/HCPCS: 36415; 43239; 74160; 76380; 80053; 80061; 80074; 81001; 82272; 82962; 83036; 83520; 83690; 84443; 85025; 85027; 85220; 85300; 85301; 85302; 85305; 85306; 85610; 85730; 86147; 86225; 86235; 88305; 88342; 96361; 96374; 96375; 99284; J0171; J1610; J1650; J1815; J2250; J2270; J2310; J2405; J2550; J3010; J3490; J7030

== ENCOUNTER 2016-05-21 15:26 | Emergency (ER) | payer MEDICARE ==
[2016-05-21] MEDS ORDERED: ONDANSETRON 4 MG TAB.RAPDIS PO ONE (15:47)
--- NOTE | 2016-05-21 15:47 | ER Document Report ---
ED Medical Screen (RME) - General Stated Complaint: ABDOMINAL PAIN Time seen by provider: 15:42 Mode of Arrival: Ambulatory Information source: Patient Notes: 55-year-old female complaining of burning epigastric abdominal pain that started while she was laying down. Tums did not help. She is nauseous. She has had 2 C-sections and appendectomy. [facility] and was told that she had a blood clot (had experienced back pain) in the portal vessel and was started on Coumadin. TRAVEL OUTSIDE OF THE [place] IN LAST 30 DAYS: No - Related Data Allergies/Adverse Reactions: clarithromycin [From Biaxin] Allergy (Verified 05/03/16 07:55) haloperidol [From Haldol] Allergy (Verified 05/03/16 07:55) Sulfa (Sulfonamide Antibiotics) Allergy (Verified 05/03/16 07:55) Past Medical History - Past Medical History Cardiac Medical History: Reports: Hx Hypercholesterolemia, Hx Hypertension Endocrine Medical History: Reports: Hx Diabetes Mellitus Type 2 GI Medical History: Reports: Hx Gastroesophageal Reflux Disease Psychiatric Medical History: Reports: Hx Bipolar Disorder, Hx Depression, Hx Schizoaffective Disorder Past Surgical History: Reports: Hx Appendectomy, Hx Section, Hx Tonsillectomy. Denies: Hx Hysterectomy - Immunizations Hx Diphtheria, Pertussis, Tetanus Vaccination: Yes
[2016-05-21 16:23] LABS: ABSOLUTE EOSINOPHILS # (AUTO) 0.1 10^3/uL (0.0-0.6); ABSOLUTE LYMPHOCYTES (AUTO) 3.6 10^3/uL (0.5-4.7); ABSOLUTE MONOCYTES (AUTO) 0.5 10^3/uL (0.1-1.4); ABSOLUTE NEUT (AUTO) 3.2 10^3/uL (1.7-8.2); BASOPHILS % (AUTO) 0.6 % (0-2); EOSINOPHILS % (AUTO) 1.7 % (0-6); HEMATOCRIT 37.6 % (36.0-47.0); HGB HCT DIFFERENCE -1.6; LYMPHOCYTES % (AUTO) 47.7 % (13-45); MEAN CORPUSCULAR HEMOGLOBIN 24.6 pg (27.0-33.4); MEAN CORPUSCULAR HGB CONC 31.8 g/dL (32.0-36.0); MEAN CORPUSCULAR VOLUME 77 fl (80-97); MONOCYTES % (AUTO) 7.2 % (3-13); RED BLOOD COUNT 4.86 10^6/uL (3.72-5.28); RED CELL DISTRIBUTION WIDTH 15.7 % (11.5-14.0); SEGMENTED NEUTROPHILS % (AUTO) 42.8 % (42-78); WHITE BLOOD COUNT 7.6 10^3/uL (4.0-10.5)
[2016-05-21 16:25] LABS: APPEARANCE,URINE CLEAR; BILIRUBIN,URINE NEGATIVE (NEGATIVE); GLUCOSE, URINE NEGATIVE (NEGATIVE); KETONES,URINE NEGATIVE (NEGATIVE); LEUKOCYTE ESTERASE,URINE NEGATIVE (NEGATIVE); NITRITE,URINE NEGATIVE (NEGATIVE); PROTEIN,URINE NEGATIVE (NEGATIVE); URINE SPECIFIC GRAVITY 1.008; UROBILINOGEN,URINE NEGATIVE mg/dL (<2.0)
[2016-05-21 16:44] LABS: ALANINE AMINOTRANSFERASE 46 U/L (9-52); ALBUMIN 3.9 g/dL (3.5-5.0); ALKALINE PHOSPHATASE 72 U/L (38-126); ANION GAP 12 (5-19); ASPARTATE AMINO TRANSFERASE 38 U/L (14-36); BILIRUBIN,TOTAL 0.4 mg/dL (0.2-1.3); BLOOD UREA NITROGEN 14 mg/dL (7-20); CALCIUM 9.7 mg/dL (8.4-10.2); CARBON DIOXIDE 25 mmol/L (22-30); CHLORIDE 105 mmol/L (98-107); CREATININE RESULT 1.03 mg/dL (0.52-1.25); GLUCOSE 79 mg/dL (75-110); LIPASE 133.8 U/L (23-300); SODIUM 141.9 mmol/L (137-145); TOTAL PROTEIN 6.9 g/dL (6.3-8.2)
[2016-05-21 16:46] LABS: PARTIAL THROMBOPLASTIN TIME 33.6 SEC (23.5-35.8); PROTHROMBIN TIME 27.6 SEC (11.4-15.4)
[2016-05-21] MEDS ORDERED: NORMAL SALINE 1000 ML 1,000 ML IV ONE (19:37)
[2016-05-21] MEDS ORDERED: PROCHLORPERAZINE EDISYLATE INJ 10 MG/2 ML VIAL IV ONE (19:38)
[2016-05-21] MEDS ORDERED: DIPHENHYDRAMINE HCL 50 MG/ML VIAL IV ONE (19:38)
[2016-05-21] MEDS ORDERED: ONDANSETRON HCL INJ/PF 4 MG/2 ML SDV IV ONE (20:46)
[2016-05-21] MEDS ORDERED: FAMOTIDINE 20 MG TABLET PO ONE (21:24)
[2016-05-21] MEDS ORDERED: MAG HYDROX/AL HYDROX/SIMETH SUSP 30 ML UDCUP PO ONE (21:24)
[2016-05-21] MEDS ORDERED: LIDOCAINE 2% VISCOUS SOLN 20 ML UDCUP PO ONE (21:24)
[2016-05-21] MEDS ORDERED: METOCLOPRAMIDE HCL ORAL SOLN 10 MG/10 ML UDCUP PO ONE (21:24)
--- NOTE | 2016-05-21 21:28 | ER Document Report ---
ED General - General Chief Complaint: Abdominal Pain Stated Complaint: ABDOMINAL PAIN Mode of Arrival: Ambulatory Notes: Patient is a 55-year-old female past history of insulin-dependent diabetes, hypertension, bipolar disorder, and history of a portal vein thrombosis currently antiquated with warfarin presents with 6 hours of epigastric and right upper quadrant abdominal pain. Describes the pain as a constant, burning pain. Nothing improves or worsens that pain. It did start after she ate lunch. She has not had similar symptoms in the past and states this does not feel similar to when she was diagnosed with a portal vein thrombosis. She has been taking all medications as directed. She has not spoken to her primary care physician regarding today's concerns. She denies any associated chest pain , shortness of breath, vomiting or diarrhea. TRAVEL OUTSIDE OF THE [place] IN LAST 30 DAYS: No - Related Data Allergies/Adverse Reactions: clarithromycin [From Biaxin] Allergy (Verified 05/21/16 15:43) haloperidol [From Haldol] Allergy (Verified 05/21/16 15:43) Sulfa (Sulfonamide Antibiotics) Allergy (Verified 05/21/16 15:43) Past Medical History - General Information source: Patient - Social History Smoking Status: Never Smoker Chew tobacco use (# tins/day): No Frequency of alcohol use: None Drug Abuse: None Lives with: Spouse/Significant other Family History: CAD Patient has suicidal ideation: No Patient has homicidal ideation: No - Past Medical History Cardiac Medical History: Reports: Hx Hypercholesterolemia, Hx Hypertension Endocrine Medical History: Reports: Hx Diabetes Mellitus Type 2 Renal/ Medical History: Denies: Hx Peritoneal Dialysis GI Medical History: Reports: Hx Gastroesophageal Reflux Disease Psychiatric Medical History: Reports: Hx Bipolar Disorder, Hx Depression, Hx Schizoaffective Disorder Past Surgical History: Reports: Hx Appendectomy, Hx Section, Hx Tonsillectomy. Denies: Hx Hysterectomy - Immunizations Hx Diphtheria, Pertussis, Tetanus Vaccination: Yes Review of Systems - Review of Systems Notes: Constitutional: Negative for fever. HENT: Negative for sore throat. Eyes: Negative for visual changes. Cardiovascular: Negative for chest pain. Respiratory: Negative for shortness of breath. Gastrointestinal: Positive for abdominal pain, negative for vomiting or diarrhea. Genitourinary: Negative for dysuria. Musculoskeletal: Negative for back pain. Skin: Negative for rash. Neurological: Negative for headaches, weakness or numbness. 10 point ROS negative except as marked above and in HPI. Physical Exam - Vital signs Vitals: Temp Pulse Resp BP Pulse Ox 97.9 F 85 16 137/65 H 97 05/21/16 15:44 05/21/16 15:44 05/21/16 15:44 05/21/16 15:44 05/21/16 15:44 Interpretation: Normal Notes: PHYSICAL EXAMINATION: GENERAL: Well-appearing, well-nourished and in no acute distress. HEAD: Atraumatic, normocephalic. EYES: Pupils equal round and reactive to light, extraocular movements intact, sclera anicteric, conjunctiva are normal. ENT: nares patent, oropharynx clear without exudates. Moist mucous membranes. NECK: Normal range of motion, supple without lymphadenopathy LUNGS: Breath sounds clear to auscultation bilaterally and equal. No wheezes rales or rhonchi. HEART: Regular rate and rhythm without murmurs ABDOMEN: Soft, mild epigastric pain, normoactive bowel sounds. No guarding, no rebound. No masses appreciated. EXTREMITIES: Normal range of motion, no pitting or edema. No cyanosis. NEUROLOGICAL: No focal neurological deficits. Moves all extremities spontaneously and on command. PSYCH: Normal mood, normal affect. SKIN: Warm, Dry, normal turgor, no rashes or lesions noted. Course - Re-evaluation Re-evalutation: 05/21/16 21:00 Patient presents with 12 hours of epigastric abdominal pain with associated nausea without vomiting. At time of arrival, patient's vitals are within normal limits and she is in no acute distress. She does have mild focal epigastric tenderness on palpation but abdominal exam is otherwise unremarkable. Given her known history of portal vein thrombosis currently appropriate antibiotics on warfarin, my primary concern would be extension of the known portal vein thrombosis. A CT the abdomen and pelvis with IV contrast was obtained and didn't not demonstrate any worsening of the clot and indeed showed decreased clot burden. No evidence of biliary pathology or inflammation of the pancreas. No evidence of bowel obstruction. I do not suspect mesenteric ischemia based on reassuring CT scan as well as clinical history. Patient is also quite dilated making this diagnosis less likely. Suspect that patient may have some degree of gastric irritation given that her symptoms started shortly after eating a heavy meal at lunch today. Will trial therapies for stomach irritation and reassess. 05/21/16 21:37 Patient is had improvement of her symptoms after seeing a GI cocktail. States that her pain and nausea are resolved at this time. Vitals remained within normal limits. Abdominal exam remained benign. No focal tenderness at this time. At this time will discharge with return precautions and follow-up recommendations. Verbal discharge instructions given a the bedside and opportunity for questions given. Medication warnings reviewed. Patient is in agreement with this plan and has verbalized understanding of return precautions and the need for primary care follow-up in the next 24-72 hours. - Vital Signs Vital signs: Temp Pulse Resp BP Pulse Ox 97.9 F 85 15 137/67 H 96 05/21/16 15:44 05/21/16 15:44 05/21/16 22:02 05/21/16 22:02 05/21/16 22:02 - Laboratory Result Diagrams: 05/21/16 15:50 05/21/16 15:50 Laboratory results interpreted by me: 05/21/16 05/21/16 05/21/16 15:20 15:50 15:50 MCV 77 L MCH 24.6 L MCHC 31.8 L RDW 15.7 H Lymphocytes % 47.7 H PT 27.6 H Est GFR (Non-Af Amer) 56 L AST 38 H Urine Blood 05/21/16 15:50 MCV MCH MCHC RDW Lymphocytes % PT Est GFR (Non-Af Amer) AST Urine Blood MODERATE H - Diagnostic Test Radiology reviewed: Reports reviewed Discharge - Discharge Clinical Impression: Epigastric abdominal pain, Nausea Condition: Good Disposition: HOME, SELF-CARE Additional Instructions: You have been seen in the Emergency Department (ED) for abdominal pain. Your evaluation did not identify a clear cause of your symptoms but was generally reassuring. Your clot in the portal vein has decreased in size. Your also been started on a medication to help reduce the irritation of your stomach called famotidine. Please take as directed. Please follow up with your doctor as soon as possible regarding today's emergent visit and the symptoms that are bothering you. Return to the ED if your abdominal pain worsens or fails to improve, you develop bloody vomiting, bloody diarrhea, you are unable to tolerate fluids due to vomiting, fever greater than 101, or other symptoms that concern you. Prescriptions: Famotidine 40 mg PO BID #60 tablet
[2016-05-21 22:16] VITALS: BP 137/67
== END 2016-05-21 22:16 | disposition home or self-care (01) ==
LOC: ER 15:26
DX: R10.13 Epigastric pain (principal); R11.0 Nausea; E11.9 Type 2 diabetes mellitus without complications; I10 Essential (primary) hypertension; F31.9 Bipolar disorder, unspecified; Z79.4 Long term (current) use of insulin
CPT/HCPCS: 99284; 96374; 96375; 36415; 83690; 85025; 85610; 85730; 80053; 81001; 74177; A9270 ×3; J1200; J3490; J0780; J2405; J7030; S0119

== ENCOUNTER → 2016-07-26 | Outpatient (CLI) | payer MEDICARE | LOC: WI 09:15 | PROVIDERS: ATTEND Family Medicine | DX: Z12.31 Encounter for screening mammogram for malignant neoplasm of breast (principal) | CPT/HCPCS: 77067; G0202 ==

== ENCOUNTER 2016-07-27 19:41 | Emergency (ER) | payer MEDICARE ==
[2016-07-27 20:11] VITALS: BP 160/74
--- NOTE | 2016-07-27 20:33 | ER Document Report ---
ED Medical Screen (RME) - General Stated Complaint: HEADACHE/FACIAL NUMBNESS Notes: 55 yo female c/o right occipital headache all day, pounding. right facial numbness x 30 minutes. + hx/o HTN. compliant with meds. no hx/o headache. + worse headache. + nausea. no relief with Tylenol no facial droop, no extremity weakness TRAVEL OUTSIDE OF THE [place] IN LAST 30 DAYS: No - Related Data Allergies/Adverse Reactions: clarithromycin [From Biaxin] Allergy (Verified 05/21/16 15:43) haloperidol [From Haldol] Allergy (Verified 05/21/16 15:43) Sulfa (Sulfonamide Antibiotics) Allergy (Verified 05/21/16 15:43) Past Medical History - Past Medical History Cardiac Medical History: Reports: Hx Hypercholesterolemia, Hx Hypertension Endocrine Medical History: Reports: Hx Diabetes Mellitus Type 2 Renal/ Medical History: Denies: Hx Peritoneal Dialysis GI Medical History: Reports: Hx Gastroesophageal Reflux Disease Psychiatric Medical History: Reports: Hx Bipolar Disorder, Hx Depression, Hx Schizoaffective Disorder Past Surgical History: Reports: Hx Appendectomy, Hx Section, Hx Tonsillectomy. Denies: Hx Hysterectomy - Immunizations Hx Diphtheria, Pertussis, Tetanus Vaccination: Yes Physical Exam - Vital signs Vitals: Temp Pulse Resp BP Pulse Ox 98.7 F 92 16 160/74 H 97 07/27/16 20:10 07/27/16 20:10 07/27/16 20:10 07/27/16 20:10 07/27/16 20:10 Course - Vital Signs Vital signs: Temp Pulse Resp BP Pulse Ox 98.7 F 92 16 160/74 H 97 07/27/16 20:10 07/27/16 20:10 07/27/16 20:10 07/27/16 20:10 07/27/16 20:10
[2016-07-27] MEDS ORDERED: DIPHENHYDRAMINE HCL 50 MG CAPSULE PO ONE (20:34)
[2016-07-27] MEDS ORDERED: PROMETHAZINE HCL 25 MG TABLET PO ONE (20:35)
[2016-07-27 20:55] LABS: ABSOLUTE EOSINOPHILS # (AUTO) 0.1 10^3/uL (0.0-0.6); ABSOLUTE LYMPHOCYTES (AUTO) 3.4 10^3/uL (0.5-4.7); ABSOLUTE MONOCYTES (AUTO) 0.6 10^3/uL (0.1-1.4); ABSOLUTE NEUT (AUTO) 3.9 10^3/uL (1.7-8.2); BASOPHILS % (AUTO) 0.5 % (0-2); EOSINOPHILS % (AUTO) 1.8 % (0-6); HEMATOCRIT 36.4 % (36.0-47.0); HEMOGLOBIN 12.1 g/dL (12.0-15.5); HGB HCT DIFFERENCE -0.1; LYMPHOCYTES % (AUTO) 41.9 % (13-45); MEAN CORPUSCULAR HEMOGLOBIN 24.3 pg (27.0-33.4); MEAN CORPUSCULAR HGB CONC 33.1 g/dL (32.0-36.0); MEAN CORPUSCULAR VOLUME 74 fl (80-97); MONOCYTES % (AUTO) 7.5 % (3-13); RED BLOOD COUNT 4.96 10^6/uL (3.72-5.28); RED CELL DISTRIBUTION WIDTH 16.5 % (11.5-14.0); SEGMENTED NEUTROPHILS % (AUTO) 48.3 % (42-78)
[2016-07-27 21:00] LABS: APPEARANCE,URINE CLEAR; BILIRUBIN,URINE NEGATIVE (NEGATIVE); GLUCOSE, URINE 150 mg/dL (NEGATIVE); KETONES,URINE NEGATIVE (NEGATIVE); LEUKOCYTE ESTERASE,URINE NEGATIVE (NEGATIVE); NITRITE,URINE NEGATIVE (NEGATIVE); PROTEIN,URINE NEGATIVE (NEGATIVE); URINE SPECIFIC GRAVITY 1.016; UROBILINOGEN,URINE NEGATIVE mg/dL (<2.0)
[2016-07-27 21:09] LABS: ALANINE AMINOTRANSFERASE 46 U/L (9-52); ALBUMIN 4.1 g/dL (3.5-5.0); ALKALINE PHOSPHATASE 73 U/L (38-126); ANION GAP 13 (5-19); ASPARTATE AMINO TRANSFERASE 32 U/L (14-36); BILIRUBIN,DIRECT 0.1 mg/dL (0.0-0.4); BILIRUBIN,TOTAL 0.3 mg/dL (0.2-1.3); BLOOD UREA NITROGEN 15 mg/dL (7-20); CALCIUM 9.6 mg/dL (8.4-10.2); CARBON DIOXIDE 23 mmol/L (22-30); CHLORIDE 107 mmol/L (98-107); CREATININE RESULT 0.97 mg/dL (0.52-1.25); GLUCOSE 145 mg/dL (75-110); POTASSIUM 4.2 mmol/L (3.6-5.0); TOTAL PROTEIN 6.9 g/dL (6.3-8.2)
== END 2016-07-27 22:47 | disposition left against medical advice (07) ==
LOC: ER 19:41
DX: R51 Headache (principal); R20.0 Anesthesia of skin; I10 Essential (primary) hypertension; E11.9 Type 2 diabetes mellitus without complications; Z88.1 Allergy status to other antibiotic agents; Z88.8 Allergy status to other drugs, medicaments and biological substances; Z88.2 Allergy status to sulfonamides; Z53.20 Procedure and treatment not carried out because of patient's decision for unspecified reasons
CPT/HCPCS: 99281; 36415; 85025; 80053; 81001; 70450; A9270 ×2

== ENCOUNTER → 2016-09-19 | Outpatient (CLI) | payer MEDICARE ==
--- NOTE | 2016-09-19 10:48 | RADIOLOGY REPORT (SQ) ---
EXAM DESCRIPTION: CT ABD/PELVIS WITH IV ONLY COMPLETED DATE/TIME: 09/19/2016 8:18 am REASON FOR STUDY: PORTAL VEIN THROMBOSIS/ABDOMINAL PAIN I81 PORTAL VEIN THROMBOSIS R10.9 UNSPECIFI ED ABDOMINAL PAIN R10.2 PELVIC AND PERINEAL PAIN COMPARISON: 05/21/2016 TECHNIQUE: CT scan of the abdomen and pelvis performed using helical scanning technique with dynamic intravenous contrast injection. No oral contrast. Images reviewed with lung, soft tissue, and bone windows. Reconstructed coronal and sagittal MPR images reviewed. Delayed images for evaluation of the urinary system also acquired. All images stored on PACS. All CT scanners at this facility use dose modulation, iterative reconstruction, and/or weight based d osing when appropriate to reduce radiation dose to as low as reasonably achievable (ALARA). [facility]: Dose Right [facility]: CareDose [facility]: Dose Right [facility]: Teradose 4D [facility]: Visual Realm CONTRAST TYPE AND DOSE: 100mL Isovue 370- low osmolar. RENAL FUNCTION: Creatinine 1.1 BUN 17 RADIATION DOSE: 48.95mGy. LIMITATIONS: None. FINDINGS: LOWER CHEST: No significant findings. No nodules or infiltrates. LIVER: There is continued improved perfusion of the left lobe of the liver. There continues to be so me degree of delayed washout in the left lobe. No hepatic masses are seen. SPLEEN: Normal size. No focal lesions. PANCREAS: No masses. No significant calcifications. No adjacent inflammation or peripancreatic fluid collections. Pancreatic duct not dilated. GALLBLADDER: Contracted. No stones are seen. ADRENAL GLANDS: No significant masses or asymmetry. RIGHT KIDNEY AND URETER: No solid masses. No significant calcifications. No hydronephrosis or hyd roureter. LEFT KIDNEY AND URETER: No solid masses. No significant calcifications. No hydronephrosis or hydr oureter. AORTA AND VESSELS: No aneurysm. No dissection. Renal arteries, SMA, celiac without stenosis. RETROPERITONEUM: No retroperitoneal adenopathy, hemorrhage or masses. BOWEL AND PERITONEAL CAVITY: No masses or inflammatory changes. No free fluid or peritoneal masses. APPENDIX: Surgically absent. PELVIS: No mass or free fluid. The urinary bladder is normal. Uterus is normal for age. There is n o adnexal mass or fluid collection. ABDOMINAL WALL: No masses. No hernias. BONES: There are bridging osteophytes in the upper lumbar spine. OTHER: No other significant finding. IMPRESSION: 1. There is continued improved perfusion of the left lobe of the liver. There is mild delayed washout once again. L2. The main and right portal veins are normal. There is no pathology involving the superior mesent sarah vein. TECHNICAL DOCUMENTATION: JOB ID: [id number] Quality ID # [id number]: Final reports with documentation of one or more dose reduction techniques (e.g., Au tomated exposure control, adjustment of the mA and/or kV according to patient size, use of iterative reconstruction technique) 2010 [id number]- All Rights Reserved
== END ==
LOC: RAD 07:38
PROVIDERS: ATTEND Internal Medicine
DX: R10.2 Pelvic and perineal pain (principal); R07.9 Chest pain, unspecified
CPT/HCPCS: 74177

== ENCOUNTER 2017-03-25 09:55 | Emergency (ER) | payer MEDICARE ==
[2017-03-25 10:12] VITALS: BP 152/67
--- NOTE | 2017-03-25 11:03 | ER Document Report ---
ED Neck/Back Problem - General Chief Complaint: Back Pain Stated Complaint: BACK PAIN, COUGH Time Seen by Provider: 03/25/17 10:24 Mode of Arrival: Ambulatory Information source: Patient Notes: 56-year-old female presents to ED for complaint of cough cold congestion and low back pain times a week. She denied any injury. She does have a history of chronic back pain. She also has a history of blood clots in the lungs. She was taken Coumadin but has been taken off of that because the lungs were clear. TRAVEL OUTSIDE OF THE [place] IN LAST 30 DAYS: No - HPI Patient complains to provider of: Upper back - Upper and lower back pain for about a month, Lower back - Findings cough congestion and low back pain for a month Onset: Other - Month Where: Home Onset: Gradual Timing: Still present Quality of pain: Achy Context: Bending Recent injury: No Associated symptoms: Like prior neck/back pain, Radiation to leg, Lower back pain, Upper back pain. denies: Constipation, Fever, Incontinence, Motor loss, Numbness/tingling, Sensory loss, Sweaty, Unable to urinate Exacerbated by: Nothing Relieved by: Nothing Similar symptoms previously: Yes Recently seen / treated by doctor: Yes - Related Data Allergies/Adverse Reactions: clarithromycin [From Biaxin] Allergy (Verified 05/21/16 15:43) haloperidol [From Haldol] Allergy (Verified 05/21/16 15:43) Sulfa (Sulfonamide Antibiotics) Allergy (Verified 05/21/16 15:43) Past Medical History - General Information source: Patient - Social History Smoking Status: Former Smoker Cigarette use (# per day): No Chew tobacco use (# tins/day): No Smoking Education Provided: No Frequency of alcohol use: None Drug Abuse: None Lives with: Family Family History: CAD Patient has suicidal ideation: No Patient has homicidal ideation: No - Past Medical History Cardiac Medical History: Reports: Hx Hypercholesterolemia, Hx Hypertension Pulmonary Medical History: Reports: None EENT Medical History: Reports: None Neurological Medical History: Reports: None Endocrine Medical History: Reports: Hx Diabetes Mellitus Type 2 Renal/ Medical History: Reports: None Malignancy Medical History: Reports: None GI Medical History: Reports: Hx Gastroesophageal Reflux Disease Musculoskeltal Medical History: Reports None, Reports Hx Arthritis, Reports Hx Musculoskeletal Deformity, Reports Hx Musculoskeletal Trauma Skin Medical History: Reports None Psychiatric Medical History: Reports: Hx Bipolar Disorder, Hx Depression, Hx Schizoaffective Disorder Traumatic Medical History: Reports: None Infectious Medical History: Reports: None Past Surgical History: Reports: Hx Appendectomy, Hx Section, Hx Tonsillectomy - Immunizations Hx Diphtheria, Pertussis, Tetanus Vaccination: Yes Review of Systems - Review of Systems Constitutional: No symptoms reported EENT: No symptoms reported Cardiovascular: No symptoms reported Respiratory: No symptoms reported Gastrointestinal: No symptoms reported Genitourinary: No symptoms reported Female Genitourinary: No symptoms reported Musculoskeletal: Back pain, Muscle pain, Muscle stiffness Skin: No symptoms reported Hematologic/Lymphatic: No symptoms reported Neurological/Psychological: No symptoms reported -: Yes All other systems reviewed and negative Physical Exam - Vital signs Vitals: Temp Pulse Resp BP Pulse Ox 98.4 F 81 18 152/67 H 96 03/25/17 10:08 03/25/17 10:08 03/25/17 10:08 03/25/17 10:08 03/25/17 10:08 Interpretation: Normal - General General appearance: Appears well, Alert - HEENT Head: Normocephalic, Atraumatic Eyes: Normal Pupils: PERRL - Respiratory Respiratory status: No respiratory distress Chest status: Nontender Breath sounds: Normal Chest palpation: Normal - Cardiovascular Rhythm: Regular Heart sounds: Normal auscultation Murmur: No - Abdominal Inspection: Normal Distension: No distension Bowel sounds: Normal Tenderness: Nontender Organomegaly: No organomegaly - Back Back: Normal, Tender - Muscle pain and stiffness to the back.. No: Deformity/ step-off, CVA tenderness, Vertebra tenderness, Scars, Scoliosis, Wounds - Extremities General upper extremity: Normal inspection, Nontender, Normal color, Normal ROM , Normal temperature General lower extremity: Normal inspection, Nontender, Normal color, Normal ROM , Normal temperature, Normal weight bearing. No: Shashi's sign - Neurological Neuro grossly intact: Yes Cognition: Normal Orientation: AAOx4 [place] Coma Scale Eye Opening: Spontaneous [place] Coma Scale Verbal: Oriented [place] Coma Scale Motor: Obeys Commands [place] Coma Scale Total: 15 Speech: Normal Motor strength normal: LUE, RUE, LLE, RLE Sensory: Normal - Psychological Associated symptoms: Normal affect, Normal mood - Skin Skin Temperature: Warm Skin Moisture: Dry Skin Color: Normal Course - Re-evaluation Re-evalutation: 03/25/17 13:32 Signs of cauda equina no signs of saddle anesthesia, no loss control of bowel bladder, no loss control of muscles to legs, and no loss of sensation to legs. Will discharge patient home with Aspercreme ibuprofen ice heat and back exercises. - Vital Signs Vital signs: Temp Pulse Resp BP Pulse Ox 98.4 F 81 18 152/67 H 96 03/25/17 10:08 03/25/17 10:08 03/25/17 10:08 03/25/17 10:08 03/25/17 10:08 Discharge - Discharge Clinical Impression: Back pain Qualifiers: Back pain location: thoracic back pain Chronicity: chronic Back pain laterality : bilateral Qualified Code(s): M54.6 - Pain in thoracic spine Low back pain Qualifiers: Chronicity: acute Back pain laterality: bilateral Sciatica presence: without sciatica Qualified Code(s): M54.5 - Low back pain Condition: Stable Disposition: HOME, SELF-CARE Instructions: Range of Motion Exercises ([facility]), Exercise Program for the Shoulder ([facility]), Upper Back Strain ([facility]) Additional Instructions: LOW BACK PAIN: Three out of every four people will have an episode of disabling back pain during their lifetime. Most commonly the pain is due to straining of the muscles and ligaments in the low back. Usual treatment includes: (1) Rest on a firm surface. Avoid lying on your stomach. (2) Ice pack the painful area. After a few days, gentle heat may be used intermittently to relax the area, or ice packs can be continued. (3) Medication may be needed -- muscle relaxers and antiinflammatory medicines are commonly used. (4) As the back improves, exercises are prescribed to strengthen the back and abdominal muscles. Your doctor will advise you on the proper care for your back at each stage in your recovery. You may be better in a few days -- or healing may take several weeks. If new symptoms of a "herniated disc" (radiation of pain, numbness, or tingling down the back of the leg or weakness in the leg) occur, you should be re-examined. Further testing may be necessary. ICE PACKS: Apply ice packs frequently against the painful area. Many different schedules are recommended, such as "20 minutes on, 20 minutes off" or "one hour ice, two hours rest." If you need to work, you may need to go longer between ice treatments. You should plan to have the area ice packed AT LEAST one fourth of the time. The ice should be applied over the wrap, tape, or splint, or over a layer of cloth -- not directly against the skin. Some ice bags have a built-in cloth and can be put directly on the skin. WARM PACKS: After approximately two days, apply gentle heat (such as a heating pad or hot water bottle) for about 20 to 30 minutes about every two hours -- at least four times daily. Warmth and elevation will help you make a more rapid recovery , and will ease the pain considerably. Do not use HOT heat, and never apply heat for longer than 30 minutes. The continuous heat can invisibly damage skin and muscles -- even when no burn is seen on the surface. Damaged muscles can make you MORE sore. Stretching Exercises for the Back The physician has recommended that you begin stretching exercises for your back. These are often used even while the back is painful. However, you should notify the physician if the activities seem to increase your pain. PELVIC TILT: Lie flat on your back with knees bent. Tighten your stomach and buttock muscles so it flattens your lower back against the floor. Hold 10 seconds. Repeat 10 times, twice daily. KNEE RAISE: Lying on the back with knees bent, raise one knee to your chest, then the other. Hold both knees against the chest 10 seconds, then lower one knee at a time. Repeat 10 times, twice daily. PARTIAL TRUNK RAISE: Lie face down, arms at your sides. Keeping your waist on the floor, use your arms raise your chest up. Support yourself on your elbows for 30 seconds. Repeat twice daily, increasing the time to two minutes as you recover. Chronic Back Pain Chronic back pain (pain persisting longer than three months) is a common problem. A medical evaluation can look for herniated disc, arthritis, osteoporosis, tumors, and infections. But at least half the time, there's no obvious treatable cause. Anxiety and depression tend to worsen back pain. Ibuprofen or other anti-inflammatory medicine can help. A heating pad, used for 15-20 minutes at a time, can ease pain. For this type of back pain, narcotic medicines should be avoided. Muscle relaxers are rarely helpful unless you're having spasms. Activity is important. Find an aerobic exercise program that your back can tolerate. Too much rest makes back pain worse. Specific back exercises are usually prescribed to strengthen the back and abdominal muscles. Often, a physical therapist can help. Avoid heavy lifting, working while bent over, or standing with both knees straight. Most back pain patients do better with a firm mattress. If new symptoms of a "herniated disc" (radiation of pain, numbness, or tingling down the back of the leg or weakness in the leg) occur, you should be re-examined. Aspercreme or BenGay whichever is more beneficial to you would also help with your back pain FOLLOW-UP CARE: If you have been referred to a physician for follow-up care, call the physician s office for an appointment as you were instructed or within the next two days. If you experience worsening or a significant change in your symptoms, notify the physician immediately or return to the Emergency Department at any time for re-evaluation. Prescriptions: Lidocaine [Lidoderm 5% (700 mg) Transdermal Patch] 1 patch TP DAILY #30 adh..patch Forms: Elevated Blood Pressure
[2017-03-25] MEDS ORDERED: LIDOCAINE 5% (700 MG) TRANSDERMAL ADH..PATCH TP ONE (11:05)
== END 2017-03-25 11:10 | disposition home or self-care (01) ==
LOC: ER 09:55
DX: M54.6 Pain in thoracic spine (principal); M54.5 Low back pain; R05 Cough; R09.81 Nasal congestion; Z87.891 Personal history of nicotine dependence
CPT/HCPCS: 99283

== ENCOUNTER 2018-05-25 15:56 | Emergency (ER) | payer OTHER, MEDICARE ==
[2018-05-25 17:25] LABS: ABSOLUTE EOSINOPHILS # (AUTO) 0.1 10^3/uL (0.0-0.6); ABSOLUTE LYMPHOCYTES (AUTO) 2.9 10^3/uL (0.5-4.7); ABSOLUTE MONOCYTES (AUTO) 0.6 10^3/uL (0.1-1.4); ABSOLUTE NEUT (AUTO) 3.7 10^3/uL (1.7-8.2); BASOPHILS % (AUTO) 0.6 % (0-2); EOSINOPHILS % (AUTO) 1.9 % (0-6); HEMATOCRIT 41.5 % (36.0-47.0); HEMOGLOBIN 14.3 g/dL (12.0-15.5); LYMPHOCYTES % (AUTO) 39.4 % (13-45); MEAN CORPUSCULAR HEMOGLOBIN 29.2 pg (27.0-33.4); MEAN CORPUSCULAR HGB CONC 34.5 g/dL (32.0-36.0); MEAN CORPUSCULAR VOLUME 85 fl (80-97); MONOCYTES % (AUTO) 7.7 % (3-13); PLATELET COUNT 229 10^3/uL (150-450); RED CELL DISTRIBUTION WIDTH 13.9 % (11.5-14.0); SEGMENTED NEUTROPHILS % (AUTO) 50.4 % (42-78); TOTAL CELLS COUNTED % (AUTO) 100 %; WHITE BLOOD COUNT 7.3 10^3/uL (4.0-10.5)
[2018-05-25 17:25] LABS: APPEARANCE,URINE CLEAR; BILIRUBIN,URINE NEGATIVE (NEGATIVE); COLOR,URINE YELLOW; GLUCOSE, URINE 150 mg/dL (NEGATIVE); KETONES,URINE NEGATIVE (NEGATIVE); LEUKOCYTE ESTERASE,URINE NEGATIVE (NEGATIVE); NITRITE,URINE NEGATIVE (NEGATIVE); PROTEIN,URINE NEGATIVE (NEGATIVE); URINE SPECIFIC GRAVITY 1.016; UROBILINOGEN,URINE NEGATIVE mg/dL (<2.0)
[2018-05-25 17:39] LABS: URINE AMPHETAMINES SCREEN NEGATIVE; URINE BARBITURATES SCREEN NEGATIVE; URINE BENZODIAZEPINES SCREEN NEGATIVE; URINE COCAINE SCREEN NEGATIVE; URINE MARIJUANA (THC) SCREEN UNCONFIRMED POSITIVE; URINE METHADONE SCREEN NEGATIVE; URINE PHENCYCLIDINE SCREEN NEGATIVE
[2018-05-25 17:43] LABS: ALANINE AMINOTRANSFERASE 51 U/L (9-52); ALBUMIN 4.7 g/dL (3.5-5.0); ALKALINE PHOSPHATASE 71 U/L (38-126); ANION GAP 10 (5-19); ASPARTATE AMINO TRANSFERASE 39 U/L (14-36); BILIRUBIN,DIRECT 0.1 mg/dL (0.0-0.4); BILIRUBIN,TOTAL 0.3 mg/dL (0.2-1.3); BLOOD UREA NITROGEN 18 mg/dL (7-20); CALCIUM 9.5 mg/dL (8.4-10.2); CARBON DIOXIDE 26 mmol/L (22-30); CHLORIDE 101 mmol/L (98-107); GLUCOSE 303 mg/dL (75-110); POTASSIUM 4.2 mmol/L (3.6-5.0); SODIUM 136.9 mmol/L (137-145); TOTAL PROTEIN 7.4 g/dL (6.3-8.2)
[2018-05-25 17:45] LABS: ACETAMINOPHEN < 10 ug/mL (10-30); ALCOHOL < 10 mg/dL (NONE DETECTED); SALICYLATE < 1.0 mg/dL (2.0-20.0)
--- NOTE | 2018-05-25 20:24 | ER Document Report ---
Entered by MATTHIAS BALLARD SCRIBE 05/25/18 1064 Acting as scribe for:RAINER EDWARDS DO ED Psych Disorder / Suicide - General Chief Complaint: Psych Problem Stated Complaint: PSYCH EVAL Time Seen by Provider: 05/25/18 16:41 Primary Care Provider: TERRANCE FAITH MD [Primary Care Provider] - Follow up as needed Notes: 57-year-old female that presents to the emergency department today with complaints of suicidal ideation. Patient goes on to describe generalized muscle cramping across her entire body that has led her to wanting to harm herself. Patient states she has had multiple suicide attempts in the past with the last one being about 5 years ago. Patient states she does not have a specific plan but "if she was going to do it she would take Tylenol, potassium, or insulin". Patient states she has had these muscle cramps for 3 years and when living in [place] she was on Zanaflex which helped her pain. Patient states when moving here her doctor took her off of Zanaflex and she "cannot take this chronic pain anymore". Patient states she had also taken magnesium while in [place] which helped. Patient takes Geodon, Lamictal, and trazodone which she states she does not think it is "working anymore". Review of systems: Constitutional: No symptoms reported EENT: No symptoms reported Cardiovascular: No symptoms reported Respiratory: No symptoms reported Gastrointestinal: No symptoms reported Genitourinary: No symptoms reported Musculoskeletal: Generalized muscle cramps Skin: No symptoms reported Hematologic/Lymphatic: No symptoms reported Neurological/Psychological: Endorses suicidal ideation Yes All other systems reviewed and negative TRAVEL OUTSIDE OF THE [place] IN LAST 30 DAYS: No - Related Data Allergies/Adverse Reactions: clarithromycin [From Biaxin] Allergy (Verified 05/25/18 15:58) haloperidol [From Haldol] Allergy (Verified 05/25/18 15:58) Sulfa (Sulfonamide Antibiotics) Allergy (Verified 05/25/18 15:58) Past Medical History - Social History Smoking Status: Unknown if Ever Smoked Chew tobacco use (# tins/day): No Frequency of alcohol use: None Drug Abuse: Marijuana Family History: CAD Patient has suicidal ideation: Yes Patient has homicidal ideation: No - Past Medical History Cardiac Medical History: Reports: Hx Hypercholesterolemia, Hx Hypertension Endocrine Medical History: Reports: Hx Diabetes Mellitus Type 2 Renal/ Medical History: Denies: Hx Peritoneal Dialysis GI Medical History: Reports: Hx Gastroesophageal Reflux Disease Musculoskeletal Medical History: Reports Hx Arthritis, Reports Hx Musculoske letal Deformity, Reports Hx Musculoskeletal Trauma Psychiatric Medical History: Reports: Hx Bipolar Disorder, Hx Depression, Hx Schizoaffective Disorder Past Surgical History: Reports: Hx Appendectomy, Hx Section, Hx Tonsillectomy. Denies: Hx Hysterectomy - Immunizations Hx Diphtheria, Pertussis, Tetanus Vaccination: Yes Physical Exam - Vital signs Vitals: Temp Pulse Resp BP Pulse Ox 98.4 F 91 16 161/73 H 96 05/25/18 16:00 05/25/18 16:00 05/25/18 16:05/25/18 16:05/25/18 16:00 - Notes Notes: PHYSICAL EXAM GENERAL: Alert, interacts well. No acute distress. HEAD: Normocephalic, atraumatic. EYES: Pupils equal, round, and reactive to light. Extraocular movements intact. ENT: Oral mucosa moist, tongue midline. NECK: Full range of motion. Supple. Trachea midline. LUNGS: Clear to auscultation bilaterally, no wheezes, rales, or rhonchi. No respiratory distress. HEART: Regular rate and rhythm. No murmurs, gallops, or rubs. ABD:non-distended. EXTREMITIES: Moves all 4 extremities spontaneously. NEUROLOGICAL: Alert and oriented x3. Normal speech. PSYCH: Tearful. Flat affect occasionally. SKIN: Warm and dry. Course - Re-evaluation Re-evalutation: 05/25/18 19:20 CBC is unremarkable, CMP grossly unremarkable with the exception of elevated glucose, she is known to be a diabetic, we have ordered her daily medications. LFTs normal, potassium and magnesium are both normal, no need for supplementation at this time, urinalysis does show moderate blood but 0 RBCs. There is the possibility of rhabdomyolysis causing her pain so I will order a CK at this time. Otherwise unremarkable, no signs of infection, salicylates and acetaminophen are undetectable as is alcohol, urine drug screen only shows positive for marijuana. - Vital Signs Vital signs: Temp Pulse Resp BP Pulse Ox 98.4 F 91 16 161/73 H 96 05/25/18 16:00 05/25/18 16:00 05/25/18 16:00 05/25/18 16:00 05/25/18 16:00 - Laboratory Result Diagrams: 05/25/18 17:00 05/25/18 17:00 Laboratory results interpreted by me: 05/25/18 05/25/18 05/25/18 16:55 17:00 17:00 Sodium 136.9 L Est GFR (Non-Af Amer) 50 L Glucose 303 H AST 39 H Creatine Kinase 543 H Urine Glucose (UA) 150 H Urine Blood MODERATE H Salicylates < 1.0 L Acetaminophen < 10 L Discharge - Discharge Clinical Impression: Suicidal ideation, Muscle cramps, Diabetes 1.5, managed as type 1, Tobacco abuse Condition: Stable Disposition: PSYCH HOSP/UNIT Referrals: TERRANCE FAITH MD [Primary Care Provider] - Follow up as needed Scribe Attestation: 05/25/18 20:24 I personally performed the services described in the documentation, reviewed and edited the documentation which was dictated to the scribe in my presence, and it accurately records my words and actions. I personally performed the services described in the documentation, reviewed and edited the documentation which was dictated to the scribe in my presence, and it accurately records my words and actions.
[2018-05-25] MEDS ORDERED: (PENDING PHARMACY ID) (Omega-3/Dha/Epa/Fish Oil [Fish Oil 1,000 Mg Softgel] 1 EACH) PO SCH (22:00)
[2018-05-25] MEDS ORDERED: HUM INSULIN NPH/REG INSULIN HM 100 UNIT/1 ML 3 ML SUBCUT ONE (22:00)
[2018-05-25] MEDS ORDERED: TRAZODONE HCL 50 MG TABLET PO SCH (22:00)
[2018-05-25] MEDS ORDERED: LAMOTRIGINE 25 MG PO SCH (22:00)
[2018-05-25] MEDS ORDERED: OMEGA-3 ACID ETHYL ESTERS 1 GM CAPSULE PO SCH (22:00)
[2018-05-25] MEDS ORDERED: (PENDING PHARMACY ID) (Trazodone Hcl [Trazodone Hcl] 300 MG) PO SCH (22:00)
[2018-05-25] MEDS ORDERED: SIMVASTATIN 40 MG TABLET PO SCH (22:00)
[2018-05-25] MEDS ORDERED: (PENDING PHARMACY ID) (Ziprasidone Hcl [Geodon] 80 MG) PO SCH (22:00)
--- NOTE | 2018-05-25 22:57 | EKG REPORT ---
SEVERITY:- OTHERWISE NORMAL ECG - SINUS RHYTHM BORDERLINE LEFT AXIS DEVIATION : Confirmed by: Nadya Moraes MD 25-May-2018 22:57:30
[2018-05-25] MEDS: LAMOTRIGINE 100 MG TABLET PO SCH (23:37)
[2018-05-25] MEDS: ZIPRASIDONE HCL 40 MG CAPSULE PO SCH (23:38)
[2018-05-25] MEDS: TIZANIDINE HCL 4 MG TABLET PO PRN (23:46)
[2018-05-26] MEDS ORDERED: LEVOTHYROXINE SODIUM 0.112 MG TABLET PO SCH (06:00)
[2018-05-26] MEDS ORDERED: LEVOTHYROXINE SODIUM 0.1 MG TABLET PO SCH (06:00)
[2018-05-26] MEDS ORDERED: LANSOPRAZOLE 30 MG TAB.RAP.DR PO SCH (06:00)
[2018-05-26] MEDS ORDERED: LEVOTHYROXINE SODIUM 0.025 MG TABLET PO SCH (06:00)
[2018-05-26] MEDS: METFORMIN HCL 500 MG TABLET PO SCH ×2 (07:42→17:36)
[2018-05-26] MEDS ORDERED: HUM INSULIN NPH/REG INSULIN HM 100 UNIT/1 ML 3 ML SUBCUT SCH ×2 (08:00→16:00)
[2018-05-26] MEDS: GLIPIZIDE XL 5 MG TAB.ER.24 PO SCH ×2 (09:31→18:18)
[2018-05-26] MEDS: TIZANIDINE HCL 4 MG TABLET PO PRN (09:34)
--- NOTE | 2018-05-26 09:36 | ER Document Report ---
Doctor's Note Notes: 05/26/18 09:35 57-year-old female who is complaining of chronic pain inducing suicidal ideations. Attempts in the past. No specific plan. Labs and vital signs as recorded. Awaiting psychiatry/psychology evaluation. 05/26/18 17:59 Behavioral health team is seen and assessed the patient. They do not believe that the patient feels IVC requirements at this time. Patient is very calm and cooperative in no acute distress. She denies any suicidal or homicidal ideations at this time. Patient's is in the room and is very comfortable with the patient being discharged home at this time. He promises to bring the patient back with any new or worrisome symptoms. I have talked to the patient about [facility] pain [facility]. We will provide prescriptions and outpatient psychological follow-up instructions.
[2018-05-26] MEDS ORDERED: (PENDING PHARMACY ID) (Venlafaxine Hcl [Venlafaxine Hcl Er] 225 MG) PO SCH (10:00)
[2018-05-26] MEDS ORDERED: LOSARTAN POTASSIUM 50 MG TABLET PO SCH (10:00)
[2018-05-26] MEDS ORDERED: (PENDING PHARMACY ID) (Metformin Hcl [Metformin Hcl Er] 500 MG) PO SCH (10:00)
[2018-05-26] MEDS ORDERED: VENLAFAXINE HCL 75 MG CAP.SR.24H PO SCH (10:00)
[2018-05-26] MEDS: ZIPRASIDONE HCL 40 MG CAPSULE PO SCH (10:25)
--- NOTE | 2018-05-26 10:32 | PSYCHOLOGICAL NOTE ---
Psych Note - Psych Note Date seen by psych provider: 05/26/18 Time seen by psych provider: 08:20 Psych Note: Reason for Consult: suicidal ideation Patient arrived to [facility] ED with concerns of suicidal ideation. She reports that she has thoughts of harm herself because of pain from her medical diagnoses. She reports that she just cannot deal with the pain. She reports that her kidneys are failing and she does not want to do dialysis and has in fact decided to refuse dialysis. She reports that she sees her [id number] during dialysis and does not want to go through it. She denies any stressors in her home and feels safe with her and feels that he is a good support. She reports that she does not like living in [place] as she is lived here now for 3 years from [place] and misses being with her family she has "nobody here." She reports that she cannot live in [place] anymore because of the cold weather. Patient denies homicidal ideation saying that her Geodon helps with that because she has had in the past. When asked about suicidal ideation she reports that she has had thoughts of overdosing on her Tylenol or insulin because of the pain. She reports that she has had temps in the past however the last time was approximately 8 years ago. When asked about inpatient psychiatric treatment she reports she is been inpatient at least 10 times last time being either 5 or 6 years ago. She reports that she has a diagnosis of bipolar with psychotic features however does not have a current therapist and gets her medications prescribed from [facility]. She reports that she takes Geodon, Effexor, Lamictal and trazodone. Patient is alert and orientated to person, place, time and circumstance. Mood is dysphoric with slightly tearful affect. Patient endorses suicidal ideation in connection with her medical status. Patient denies homicidal ideation. Delusions are absent behaviors congruent with an intact reality based presentation i.e. organized and linear thought process. Eye contact is well- maintained. Conversational speech is within normal rate, tone and prosody. Intellectual abilities appear to be within the average range. Attention and concentration are good. Insight, judgment, impulse control are fair. Reevaluation Patient denies thoughts of wanting to harm herself and states that she is feeling much better. She confirms that getting control of her pain is significantly improved her disposition. She reports that she is a little nervous about discontinuing her trazodone as it is the only thing that seems to help her sleep. She confirms she will talk with her outpatient provider in regards to assistance with sleeping after trying to go without the trazodone tonight. She confirms that she would like to go home to sleep in her bed as it is more comfortable. Medication recommendations per [facility]'s contracted psychiatrist Dr. Ligia PAVON are as follows please decrease home medication of Geodon to 80 mg daily please decrease home medication of Effexor to 75 mg twice daily please continue Lamictal 25 mg twice daily please discontinue home medication of trazodone 296.54 (F31.5) bipolar 1 disorder with psychotic features; current episode depressed Impression\\plan: Patient is cleared from acute psychiatric services. Patient denies thoughts of wanting to harm herself and reports that a decrease in pain has assisted in her disposition. Patient confirms she will continue with medication recommendations and follow-up with your outpatient mental health provider. Patient identifies her as her support network to ensure she does not have access to weapons, medication and follows through with mental health recommendations. Dr. Bragg was consulted on the care and management of this patient; attending physician is in agreement with recommendations and disposition.
[2018-05-26] MEDS: LAMOTRIGINE 100 MG TABLET PO SCH (10:37)
[2018-05-26] MEDS: LAMOTRIGINE 25 MG TAB.CHEW PO SCH ×2 (10:58→18:18)
[2018-05-26] MEDS: VENLAFAXINE HCL 75 MG CAP.SR.24H PO SCH ×2 (10:58→17:37)
[2018-05-26] MEDS ORDERED: ZIPRASIDONE HCL 40 MG CAPSULE PO SCH (11:00)
[2018-05-26] MEDS ORDERED: DEXTROSE 50%-WATER SYRINGE 25 GM/50 ML DOSE IV PRN (14:30)
[2018-05-26] MEDS ORDERED: GLUCAGON,HUMAN RECOMB 1 MG INJ IM PRN (14:30)
[2018-05-26] MEDS ORDERED: DEXTROSE 40% GEL 15 GM TUBE X 2 PO PRN (14:30)
[2018-05-26] MEDS ORDERED: DEXTROSE 40% GEL 15 GM TUBE PO PRN (14:30)
[2018-05-26] MEDS ORDERED: DEXTROSE 50%-WATER SYRINGE 12.5 GM/25 ML DOSE IV PRN (14:30)
[2018-05-26] MEDS ORDERED: INSULIN REG, HUMAN 100 UNIT/ML 3 ML VIAL (PYX) SUBCUT PRN (14:30)
[2018-05-26] MEDS ORDERED: GLIPIZIDE 5 MG TABLET ONE (17:41)
[2018-05-26] MEDS ORDERED: LAMOTRIGINE 25 MG TAB.CHEW ONE (17:42)
[2018-05-26] MEDS ORDERED: GLIPIZIDE XL 5 MG TAB.ER.24 PO ONE (18:08)
[2018-05-26 19:07] VITALS: BP 144/78
== END 2018-05-26 19:00 | disposition home or self-care (01) ==
LOC: ER 15:56
DX: R45.851 Suicidal ideations (principal); R25.2 Cramp and spasm; E13.9 Other specified diabetes mellitus without complications; F17.200 Nicotine dependence, unspecified, uncomplicated; Z88.2 Allergy status to sulfonamides; Z88.3 Allergy status to other anti-infective agents; E78.00 Pure hypercholesterolemia, unspecified; I10 Essential (primary) hypertension
CPT/HCPCS: 93005; 99285; 36415; 82962; 80307 ×4; 82550; 83735; 85025; 80053; 81001; 93010; J3490 ×4; J1815 ×3